=== PATIENT | female | born 1955 | race Caucasian/White ===

== ENCOUNTER 2022-05-11 10:07 | Emergency (ER) | payer OTHER ==
--- OUTSIDE RECORDS SUMMARY | 2022-05-11 10:12 | XMS REPORT | Continuity of Care Document ---
:1955 Author Organization [facility] t Address [address] [place] [address] Care Team Providers Name Role Phone Asked, No Pcp Primary Care Physician Unavailable Lexi Cotter Attending Clinician Unavailable Cr Pelayo MD Attending Clinician Doctor Unassigned, [address] Attending Clinician Unavailable FERNANDO RAGSDALE Attending Clinician Unavailable Nurse, Adc Pob Immunization Attending Clinician Unavailable Fernando Ragsdale DO Attending Clinician Alexandro Padilla MD Attending Clinician ALEXANDRO PADILLA Attending Clinician Unavailable Ha Stallings MD Attending Clinician Tod Alexander Attending Clinician KAIT STODDARD Attending Clinician Unavailable TOD HAAS Attending Clinician Unavailable HA STALLINGS Attending Clinician Unavailable Vikki Park MD Attending Clinician Pob, Adc Lab Main Attending Clinician Unavailable Katelin Lui Attending Clinician Silviano Arriola Attending Clinician Lexi Cotter Admitting Clinician Unavailable Physician, No Primary or Family Admitting Clinician Unavaila ble Payers Payer Name Policy Type Policy Number Effective Date Expiration Date S ource Problems Condition Condition Condition Status Onset Resolution Last Treating Co mments Source Name Details Category Date Date Treatment Clinician Date F03.90- F03.90- Diagnosis Active 2018-072019-09-10 Memoria UNSPECIFIE UNSPECIFIE 07-29 15:19:00 l D DEMENTIA D DEMENTIA 00:00: He rmann WITHOUT WITHOUT 00 BEH BEH Active 05/29/2019 [facility] Dementia Problem Resolve 2019-12-17 Memoria (disorder) (disorder) d 21:19:29 l Resolved [place] Problem 12/17/2019 [facility] 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 21:19:29 l (disorder) (disorder) He rmann Active Problem 12/17/2019 [facility] 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 21:19:29 l (disorder) (disorder) He rmann Active Problem 12/17/2019 [facility] 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 Cb n (disorder) (disorder) Active Problem 12/17/2019 [facility] Memory Memory Problem Active 2019-12-17 Alessandro debbi impairment impairment 21:19:29 l (finding) (finding) Herm howard Active Problem 12/17/2019 [facility] Raynaud's Raynaud's Problem Active 2019-12-17 Memoria disease disease 21:19:29 l (disorder) (disorder) He rmann Active Problem 12/17/2019 [facility] Tremor Tremor Problem Active 2019-12-17 Alessandro debbi (finding) (finding) 21:19:29 l Active [place] Problem 12/17/2019 [facility] No known No known Disease Unive rs active active ity of problems problems [facility] Allergies, Adverse Reactions, Alerts Allergy Allergy Status Severity Reaction(s) Onset Inactive Treating Comm ents Source Name Type Date Date Clinician Sulfamet Propensi Active Hives Method i hoxazole ty to 10-31 st - adverse [facility]: [facility] reaction [facility] l s to drug Septra Propensi Active Rash Univers I.V. ty to 02-18 ity of adverse 00:00: [place] reaction 00 Medical s Branch SEPTRA DRUG Active Rash Univers I.V. 02-18 ity of 00:00: [place] [id number] Medical Branch NO KNOWN Drug Active Univers ALLERGIE Class ity of S [place] [facility] Social History Social Habit Start Date Stop Date Quantity Comments Source Exposure to Not sure [facility] SARS-CoV-2 (event) Medica l Branch Tobacco use and 2020-09-13 2020-09-13 Never used [facility] [place] exposure 00:00:00 00:00:00 Medical Branch Social History 2018-03-29 2018-03-29 [facility] 17:03:20 17:03:20 Sex [birth year] [facility] 00:00:00 00:00:00 Smoking Status Start Date Stop Date Source Tobacco smoking consumption Meth [facility] unknown Never smoker [facility] Medications Ordered Filled Start Stop Current Ordering Indication Dosage Frequency Signature Comments Components Source Medication Medication Date Date Medication? Clinician (SIG) Name Name traMADoL 50 Yes 4647 50mg Take 1 Univ ers mg tablet 3-10 tablet by ity o f 00:00: mouth [place] 00 every 4 Medical (four) Branch hours as needed for Pain (scale 7-10). Indication s: acute pain traMADoL 50 2020-0 Yes 4647 50mg Take 1 Univ ers mg tablet 3-10 tablet by ity o f 00:00: mouth [place] 00 every 4 Medical (four) Branch hours as needed for Pain (scale 7-10). Indication s: acute pain traMADoL 50 2020-0 Yes 4647 50mg Take 1 Univ ers mg tablet 3-10 tablet by ity o f 00:00: mouth [place] 00 every 4 Medical (four) Branch hours as needed for Pain (scale 7-10). Indication s: acute pain traMADoL 50 2020-0 Yes 4647 50mg Take 1 Univ ers mg tablet 3-10 tablet by ity o f 00:00: mouth [place] 00 every 4 Medical (four) Branch hours as needed for Pain (scale 7-10). Indication s: acute pain traMADoL 50 2020-0 Yes 4647 50mg Take 1 Univ ers mg tablet 3-10 tablet by ity o f 00:00: mouth [place] 00 every 4 Medical (four) Branch hours as needed for Pain (scale 7-10). Indication s: acute pain traMADoL 50 2020-0 Yes 4647 50mg Take 1 Univ ers mg tablet 3-10 tablet by ity o f 00:00: mouth [place] 00 every 4 Medical (four) Branch hours as needed for Pain (scale 7-10). Indication s: acute pain traMADoL 50 2020-0 Yes 4647 50mg Take 1 Univ ers mg tablet 3-10 tablet by ity o f 00:00: mouth [place] 00 every 4 Medical (four) Branch hours as needed for Pain (scale 7-10). Indication s: acute pain traMADoL 50 2020-0 Yes 4647 50mg Take 1 Univ ers mg tablet 3-10 tablet by ity o f 00:00: mouth [place] 00 every 4 Medical (four) Branch hours as needed for Pain (scale 7-10). Indication s: acute pain traMADoL 50 2020-0 Yes 4647 50mg Take 1 Univ ers mg tablet 3-10 tablet by ity o f 00:00: mouth [place] 00 every 4 Medical (four) Branch hours as needed for Pain (scale 7-10). Indication s: acute pain traMADoL 50 2020-0 Yes 4647 50mg Take 1 Univ ers mg tablet 3-10 tablet by ity o f 00:00: mouth [place] 00 every 4 Medical (four) Branch hours as needed for Pain (scale 7-10). Indication s: acute pain traMADoL 50 2020-0 Yes 4647 50mg Take 1 Univ ers mg tablet 3-10 tablet by ity o f 00:00: mouth [place] 00 every 4 Medical (four) Branch hours as needed for Pain (scale 7-10). Indication s: acute pain traMADoL 50 2020-0 Yes 4647 50mg Take 1 Univ ers mg tablet 3-10 tablet by ity o f 00:00: mouth [place] 00 every 4 Medical (four) Branch hours as needed for Pain (scale 7-10). Indication s: acute pain traMADoL 50 2020-0 Yes 4647 50mg Take 1 Univ ers mg tablet 3-10 tablet by ity o f 00:00: mouth [place] 00 every 4 Medical (four) Branch hours as needed for Pain (scale 7-10). Indication s: acute pain traMADoL 50 2020-0 Yes 4647 50mg Take 1 Univ ers mg tablet 3-10 tablet by ity o f 00:00: mouth [place] 00 every 4 Medical (four) Branch hours as needed for Pain (scale 7-10). Indication s: acute pain HYDROcodone 2021-0 Yes 4647 1{tbl} Take 1 Un matheus -acetaminop 2-20 tablet by ity of hen 5-325 00:00: mouth [place] mg tablet 00 every 4 Medical (four) Branch hours as needed for Pain (scale 4-6). Indication s: acute pain HYDROcodone 0 Yes 4647 1{tbl} Take 1 Un matheus -acetaminop 2-20 tablet by ity of hen 5-325 00:00: mouth [place] mg tablet 00 every 4 Medical (four) Branch hours as needed for Pain (scale 4-6). Indication s: acute pain HYDROcodone Yes 4647 1{tbl} Take 1 Un matheus -acetaminop 2-20 tablet by ity of hen 5-325 00:00: mouth [place] mg tablet 00 every 4 Medical (four) Branch hours as needed for Pain (scale 4-6). Indication s: acute pain HYDROcodone Yes 4647 1{tbl} Take 1 Un matheus -acetaminop 2-20 tablet by ity of hen 5-325 00:00: mouth [place] mg tablet 00 every 4 Medical (four) Branch hours as needed for Pain (scale 4-6). Indication s: acute pain HYDROcodone Yes 4647 1{tbl} Take 1 Un matheus -acetaminop 2-20 tablet by ity of hen 5-325 00:00: mouth [place] mg tablet 00 every 4 Medical (four) Branch hours as needed for Pain (scale 4-6). Indication s: acute pain HYDROcodone Yes 4647 1{tbl} Take 1 Un matheus -acetaminop 2-20 tablet by ity of hen 5-325 00:00: mouth [place] mg tablet 00 every 4 Medical (four) Branch hours as needed for Pain (scale 4-6). Indication s: acute pain HYDROcodone Yes 4647 1{tbl} Take 1 Un matheus -acetaminop 2-20 tablet by ity of hen 5-325 00:00: mouth [place] mg tablet 00 every 4 Medical (four) Branch hours as needed for Pain (scale 4-6). Indication s: acute pain HYDROcodone Yes 4647 1{tbl} Take 1 Un matheus -acetaminop 2-20 tablet by ity of hen 5-325 00:00: mouth [place] mg tablet 00 every 4 Medical (four) Branch hours as needed for Pain (scale 4-6). Indication s: acute pain HYDROcodone 2020-0 Yes 4647 1{tbl} Take 1 Un matheus -acetaminop 2-20 tablet by ity of hen 5-325 00:00: mouth [place] mg tablet 00 every 4 Medical (four) Branch hours as needed for Pain (scale 4-6). Indication s: acute pain HYDROcodone 2020-0 Yes 4647 1{tbl} Take 1 Un matheus -acetaminop 2-20 tablet by ity of hen 5-325 00:00: mouth [place] mg tablet 00 every 4 Medical (four) Branch hours as needed for Pain (scale 4-6). Indication s: acute pain HYDROcodone 2020-0 Yes 4647 1{tbl} Take 1 Un matheus -acetaminop 2-20 tablet by ity of hen 5-325 00:00: mouth [place] mg tablet 00 every 4 Medical (four) Branch hours as needed for Pain (scale 4-6). Indication s: acute pain HYDROcodone 2020-0 Yes 4647 1{tbl} Take 1 Un matheus -acetaminop 2-20 tablet by ity of hen 5-325 00:00: mouth [place] mg tablet 00 every 4 Medical (four) Branch hours as needed for Pain (scale 4-6). Indication s: acute pain HYDROcodone 2020-0 Yes 4647 1{tbl} Take 1 Un matheus -acetaminop 2-20 tablet by ity of hen 5-325 00:00: mouth [place] mg tablet 00 every 4 Medical (four) Branch hours as needed for Pain (scale 4-6). Indication s: acute pain HYDROcodone 2020-0 Yes 4647 1{tbl} Take 1 Un matheus -acetaminop 2-20 tablet by ity of hen 5-325 00:00: mouth [place] mg tablet 00 every 4 Medical (four) Branch hours as needed for Pain (scale 4-6). Indication s: acute pain HYDROcodone 2020-0 Yes 4647 1{tbl} Take 1 Un matheus -acetaminop 2-20 tablet by ity of hen 5-325 00:00: mouth [place] mg tablet 00 every 4 Medical (four) Branch hours as needed for Pain (scale 4-6). Indication s: acute pain HYDROcodone Yes 4647 1{tbl} Take 1 Un matheus -acetaminop 2-20 tablet by ity of hen 5-325 00:00: mouth [place] mg tablet 00 every 4 Medical (four) Branch hours as needed for Pain (scale 4-6). Indication s: acute pain HYDROcodone Yes 4647 1{tbl} Take 1 Un matheus -acetaminop 2-20 tablet by ity of hen 5-325 00:00: mouth [place] mg tablet 00 every 4 Medical (four) Branch hours as needed for Pain (scale 4-6). Indication s: acute pain HYDROcodone 2020- No 4647 1{tbl} Take 1 U nivers -acetaminop 2-19 02-27 tablet by it y of hen 5-325 00:00: 05:59 mouth [place] mg tablet 00 :00 every 4 Medical (four) Branch hours as needed for Pain (scale 4-6) for up to 7 days. Indication s: acute pain HYDROcodone No 4647 1{tbl} Take 1 U nivers -acetaminop 2-19 02-27 tablet by it y of hen 5-325 00:00: 05:59 mouth [place] mg tablet 00 :00 every 4 Medical (four) Branch hours as needed for Pain (scale 4-6) for up to 7 days. Indication s: acute pain HYDROcodone No 4647 1{tbl} Take 1 U nivers -acetaminop 2-19 02-27 tablet by it y of hen 5-325 00:00: 05:59 mouth [place] mg tablet 00 :00 every 4 Medical (four) Branch hours as needed for Pain (scale 4-6) for up to 7 days. Indication s: acute pain HYDROcodone 2020- No 4647 1{tbl} Take 1 U nivers -acetaminop 2-19 02-27 tablet by it y of hen 5-325 00:00: 05:59 mouth [place] mg tablet 00 :00 every 4 Medical (four) Branch hours as needed for Pain (scale 4-6) for up to 7 days. Indication s: acute pain HYDROcodone No 4647 1{tbl} Take 1 U nivers -acetaminop 2-19 02-27 tablet by it y of hen 5-325 00:00: 05:59 mouth [place] mg tablet 00 :00 every 4 Medical (four) Branch hours as needed for Pain (scale 4-6) for up to 7 days. Indication s: acute pain HYDROcodone No 4647 1{tbl} Take 1 U nivers -acetaminop 2-19 02-27 tablet by it y of hen 5-325 00:00: 05:59 mouth [place] mg tablet 00 :00 every 4 Medical (four) Branch hours as needed for Pain (scale 4-6) for up to 7 days. Indication s: acute pain HYDROcodone No 4647 1{tbl} Take 1 U nivers -acetaminop 2-19 02-27 tablet by it y of hen 5-325 00:00: 05:59 mouth [place] mg tablet 00 :00 every 4 Medical (four) Branch hours as needed for Pain (scale 4-6) for up to 7 days. Indication s: acute pain HYDROcodone No 4647 1{tbl} Take 1 U nivers -acetaminop 2-19 02-27 tablet by it y of hen 5-325 00:00: 05:59 mouth [place] mg tablet 00 :00 every 4 Medical (four) Branch hours as needed for Pain (scale 4-6) for up to 7 days. Indication s: acute pain HYDROcodone No 4647 1{tbl} Take 1 U nivers -acetaminop 2-19 02-20 tablet by it y of hen 5-325 00:00: 00:00 mouth [place] mg tablet 00 :00 every 4 Medical (four) Branch hours as needed for Pain (scale 4-6) for up to 7 days. Indication s: acute pain HYDROcodone No 4647 1{tbl} Take 1 U nivers -acetaminop 2-19 02-20 tablet by it y of hen 5-325 00:00: 00:00 mouth [place] mg tablet 00 :00 every 4 Medical (four) Branch hours as needed for Pain (scale 4-6) for up to 7 days. Indication s: acute pain HYDROcodone No 4647 1{tbl} Take 1 U nivers -acetaminop 09-1320 tablet by it y of hen 5-325 00:00: 00:00 mouth [place] mg tablet 00 :00 every 4 Medical (four) Branch hours as needed for Pain (scale 4-6) for up to 7 days. Indication s: acute pain ketorolac 2020- No 60mg 60 mg, Unive rs (TORADOL) 09-10 Intramuscu ity of injection 22:30: 22:33 lar, ONCE, [place] 60 mg 00 :00 1 dose, Medical [facility] 09/10/20 at 1630, DOROTEO
Fa culty member approving Restricted medication : EMERGENCY ROOM, HYDROcodone 2020- No 1{tbl} 1 tablet, Univers -acetaminop 09-10 Oral, ity of hen (NORCO 22:30: 22:33 ONCE, 1 Sanjay as 5) 5-325 mg 00 :00 dose, [facility] Med ical tablet 1 09/10/20 at [facility] h tablet 1630, DOROTEO ibuprofen No 800mg 800 mg, Uni vers (IBU) 09-10 Oral, ity of tablet 800 19:45: 18:40 ONCE, 1 Sanjay as mg 00 :00 dose, [facility] 09/10/20 at Branch 1345, DOROTEO acetaminoph 2020- No 4647 1{tbl} Take 1 U nivers en-codeine 09-10 tablet by ity of 300-30 mg 00:00: 05:59 mouth [place] tablet 00 :00 every 6 Medical (six) Branch hours as needed for Pain (scale 7-10) for up to 7 days. Indication s: acute pain acetaminoph 2020- No 4647 1{tbl} Take 1 U nivers en-codeine 2-10 09-24 tablet by ity of 300-30 mg 00:00: 05:59 mouth [place] tablet 00 :00 every 6 Medical (six) Branch hours as needed for Pain (scale 7-10) for up to 7 days. Indication s: acute pain acetaminoph 2020- No 4647 1{tbl} Take 1 U nivers en-codeine 2-16 02-24 tablet by ity of 300-30 mg 00:00: 05:59 mouth [place] tablet 00 :00 every 6 Medical (six) Branch hours as needed for Pain (scale 7-10) for up to 7 days. Indication s: acute pain acetaminoph 2020- No 4647 1{tbl} Take 1 U nivers en-codeine 2-16 02-24 tablet by ity of 300-30 mg 00:00: 05:59 mouth [place] tablet 00 :00 every 6 Medical (six) Branch hours as needed for Pain (scale 7-10) for up to 7 days. Indication s: acute pain acetaminoph 2020- No 4647 1{tbl} Take 1 U nivers en-codeine 2-16 02-24 tablet by ity of 300-30 mg 00:00: 05:59 mouth [place] tablet 00 :00 every 6 Medical (six) Branch hours as needed for Pain (scale 7-10) for up to 7 days. Indication s: acute pain acetaminoph 2020- No 4647 1{tbl} Take 1 U nivers en-codeine 2-16 02-24 tablet by ity of 300-30 mg 00:00: 05:59 mouth [place] tablet 00 :00 every 6 Medical (six) Branch hours as needed for Pain (scale 7-10) for up to 7 days. Indication s: acute pain acetaminoph 2020- No 4647 1{tbl} Take 1 U nivers en-codeine 2-16 02-24 tablet by ity of 300-30 mg 00:00: 05:59 mouth [place] tablet 00 :00 every 6 Medical (six) Branch hours as needed for Pain (scale 7-10) for up to 7 days. Indication s: acute pain onabotulinu Yes See Memori a mtoxinA 100 2-12 Instructio l UNT/ML 20:36: ns, Bring Cb n Injectable 00 to Solution physician' [Botox] s office for injection, X 1 day, # 1 ea, 3 Refill(s), Pharmacy: [facility] onabotulinu Yes See Memori a mtoxinA 100 2-12 Instructio l UNT/ML 20:36: ns, Bring Cb n Injectable 00 to Solution physician' [Botox] s office for injection, X 1 day, # 1 ea, 3 Refill(s), Pharmacy: [facility] onabotulinu No See Memori a mtoxinA 100 2-12 Instructio l UNT/ML 17:46: ns, Bring Cb n Injectable 00 to Solution physician' [Botox] s office for injection, X 1 day, # 1 ea, 3 Refill(s), other onabotulinu No See Memori a mtoxinA 100 2-12 Instructio l UNT/ML 17:46: ns, Bring Cb n Injectable 00 to Solution physician' [Botox] s office for injection, X 1 day, # 1 ea, 3 Refill(s), other primidone 2018-07 Yes 50 mg = 1 Mem oria 50 mg oral 2-16 tab, PO, l tablet 19:53: BID, # 180 Andree nn 40 tab, 0 Refill(s), Pharmacy: [facility] #[id number] primidone 2018-07 Yes 50 mg = 1 Mem oria 50 mg oral 2-16 tab, PO, l tablet 19:53: BID, # 180 Andree nn 40 tab, 0 Refill(s), Pharmacy: [facility] #[id number] primidone 2018-07 Yes 50 mg = 1 Mem oria 50 mg oral 2-11 tab, PO, l tablet 17:21: BID, # 60 Cb n 00 tab, 3 Refill(s), Pharmacy: [facility] #[id number] primidone 2018-07 Yes 50 mg = 1 Mem oria 50 mg oral 2-11 tab, PO, l tablet 17:21: BID, # 60 Cb n 00 tab, 3 Refill(s), Pharmacy: [facility] #[id number] topiramate 2017-07 No 25 mg = 1 Me moria 25 MG Oral 2-28 tab, PO, l Tablet 21:35: Bedtime, # Andree nn [Topamax] 31 90 tab, 3 Refill(s), Pharmacy: [facility] topiramate 2017-07 No 25 mg = 1 Me moria 25 MG Oral 2-28 tab, PO, l Tablet 21:35: Bedtime, # Andree nn [Topamax] 31 90 tab, 3 Refill(s), Pharmacy: [facility] Vitamin B12 2017-07 Yes 1,000 Memor ia 1000 mcg 2-12 microgram l oral tablet 21:34: = 1 tab, He rmann 00 PO, Daily, # 30 tab, 3 Refill(s), [id number] Vitamin B12 2017-07 Yes 1,000 Memor ia 1000 mcg 2-12 microgram l oral tablet 21:34: = 1 tab, He rmann 00 PO, Daily, # 30 tab, 3 Refill(s), Pharmacy: [facility] #[id number] topiramate 2017-07 No 25 mg = 1 Me moria 25 MG Oral 1-08 tab, PO, l Tablet 17:20: Bedtime, X Andree nn [Topamax] 00 90 day, # 90 tab, 3 Refill(s), Pharmacy: [facility] #[id number] topiramate 2017-07 No 25 mg = 1 Me moria 25 MG Oral 1-08 tab, PO, l Tablet 17:20: Bedtime, X Andree nn [Topamax] 00 90 day, # 90 tab, 3 Refill(s), [id number] Immunizations Ordered Filled Immunization Date Status Comments [facility] e Immunization Name Name SARS-COV-2 COVID-19 2021-04-24 Completed Unive rsity of MODERNA VACCINE 00:00:00 [facility] SARS-COV-2 COVID-19 2021-04-24 Completed Unive rsity of MODERNA VACCINE 00:00:00 [facility] SARS-COV-2 COVID-19 2020-10-30 Completed Unive rsity of MODERNA VACCINE 00:00:00 [facility] SARS-COV-2 COVID-19 2020-10-30 Completed Unive rsity of MODERNA VACCINE 00:00:00 [facility] SARS-COV-2 COVID-19 2020-10-30 Completed Unive rsity of MODERNA VACCINE 00:00:00 [facility] SARS-COV-2 COVID-19 2020-10-30 Completed Unive rsity of MODERNA VACCINE 00:00:00 [facility] SARS-COV-2 COVID-19 2020-10-30 Completed Unive rsity of MODERNA VACCINE 00:00:00 [place] Med ical Branch SARS-COV-2 COVID-19 2020-10-30 Completed Unive rsity of MODERNA VACCINE 00:00:00 [place] Med ical Branch SARS-COV-2 COVID-19 2020-10-30 Completed Unive rsity of MODERNA VACCINE 00:00:00 [place] Med ical Branch SARS-COV-2 COVID-19 2020-10-30 Completed Unive rsity of MODERNA VACCINE 00:00:00 [place] Med ical Branch SARS-COV-2 COVID-19 2020-10-30 Completed Unive rsity of MODERNA VACCINE 00:00:00 [place] Med ical Branch SARS-COV-2 COVID-19 2020-10-02 Completed Unive rsity of MODERNA VACCINE 00:00:00 [place] Med ical Branch SARS-COV-2 COVID-19 2020-10-02 Completed Unive rsity of MODERNA VACCINE 00:00:00 [place] Med [facility] Branch SARS-COV-2 COVID-19 2020-10-02 Completed Unive rsity of MODERNA VACCINE 00:00:00 [place] [facility] ical Branch SARS-COV-2 COVID-19 2020-10-02 Completed Unive rsity of MODERNA VACCINE 00:00:00 [place] Med ical Branch SARS-COV-2 COVID-19 2020-10-02 Completed Unive rsity of MODERNA VACCINE 00:00:00 [place] Med ical Branch SARS-COV-2 COVID-19 2020-10-02 Completed Unive rsity of MODERNA VACCINE 00:00:00 [place] Med ical Branch SARS-COV-2 COVID-19 2020-10-02 Completed Unive rsity of MODERNA VACCINE 00:00:00 [place] Med ical Branch SARS-COV-2 COVID-19 2020-10-02 Completed Unive rsity of MODERNA VACCINE 00:00:00 [place] Med ical Branch SARS-COV-2 COVID-19 2020-10-02 Completed Unive rsity of MODERNA VACCINE 00:00:00 [place] Med ical Branch SARS-COV-2 COVID-19 2020-10-02 Completed Unive rsity of MODERNA VACCINE 00:00:00 [place] Med ical Branch SARS-COV-2 COVID-19 2020-10-02 Completed Unive rsity of MODERNA VACCINE 00:00:00 [facility] SARS-COV-2 COVID-19 2020-10-02 Completed Unive rsity of MODERNA VACCINE 00:00:00 [facility] SARS-COV-2 COVID-19 2020-10-02 Completed Unive rsity of MODERNA VACCINE 00:00:00 [facility] Vital Signs Vital Name Observation Time Observation Value Comments Source Systolic blood 2021-02-18 13:35:00 124 mm[Hg] Univer sity of pressure [facility] Diastolic blood 2021-02-18 13:35:00 80 mm[Hg] Unive rsity of pressure [facility] Heart rate 2021-02-18 13:35:00 60 /min Universi ty of [facility] Body height 2021-02-18 13:35:00 160 cm Universi ty of [facility] Body weight 2021-02-18 13:35:00 53.524 kg Universi ty [facility] BMI 2021-02-18 13:35:00 20.90 kg/m2 Universi ty [facility] Systolic blood 2020-10-30 18:11:00 123 mm[Hg] Univer sity of pressure [facility] Branch Diastolic blood 2020-10-30 18:11:00 82 mm[Hg] Unive rsity of [facility] Heart rate 2020-10-30 18:11:00 80 /min Universi ty of [facility] Body weight 2020-10-30 18:11:00 52.164 kg Universi ty of [facility] BMI 2020-10-30 18:11:00 20.37 kg/m2 Universi ty [facility] Systolic blood 2020-10-02 19:16:00 124 mm[Hg] Univer sity of pressure [facility] Branch Diastolic blood 2020-10-02 19:16:00 78 mm[Hg] Unive rsity of pressure [facility] Body height 2020-10-02 19:16:00 160 cm Universi ty of [facility] Body weight 2020-10-02 19:16:00 52.164 kg Universi ty of [facility] Branch BMI 2020-10-02 19:16:00 20.37 kg/m2 Universi ty [facility] Systolic blood 2020-09-13 16:05:00 123 mm[Hg] Univer sity of pressure [facility] Diastolic blood 2020-09-13 16:05:00 71 mm[Hg] Unive rsity of pressure [facility] Heart rate 2020-09-13 16:05:00 67 /min Universi ty of [facility] Body height 2020-09-13 16:05:00 160 cm Universi ty of [facility] Body weight 2020-09-13 16:05:00 52.164 kg Universi ty of [facility] BMI 2020-09-13 16:05:00 20.37 kg/m2 Universi ty [facility] Systolic blood 2020-09-10 23:15:00 114 mm[Hg] Univer sity of pressure [facility] Diastolic blood 2020-09-10 23:15:00 68 mm[Hg] Unive rsity of [facility] Heart rate 2020-09-10 23:15:00 72 /min Universi ty [facility] Respiratory rate 2020-09-10 23:15:00 18 /min Univ [facility] Oxygen saturation in 2020-09-10 23:15:00 98 /min [facility] Arterial blood by [facility] Pulse oximetry Branch Body temperature 2020-09-10 18:32:00 36.78 Jaylin Univ ersity of [facility] Body weight 2020-09-10 18:32:00 68.04 kg Universi ty [facility] Systolic (mm Hg) 2019-10-10 18:50:00 Alessandro pacheco [place] Diastolic (mm Hg) 2019-10-10 18:50:00 Mem orial [place] Heart Rate 2019-10-10 18:50:00 [facility] [place] Respitory Rate 2019-10-10 18:50:00 Latriceori al [place] Height 2019-10-10 18:50:00 160.02 cm [facility] [place] Weight 2019-10-10 18:50:00 [facility] BMI Calculated 2019-10-10 18:50:00 Latriceori al [place] Height 2019-09-06 16:45:00 160.02 cm [facility] Weight 2019-09-06 16:45:00 [facility] BMI Calculated 2019-09-06 16:45:00 [facility] Systolic (mm Hg) 2019-09-06 16:45:00 Alessandro [facility] Diastolic (mm Hg) 2019-09-06 16:45:00 Mem orial [facility] Heart Rate 2019-09-06 16:45:00 [facility] Respitory Rate 2019-09-06 16:45:00 [facility] Systolic (mm Hg) 2019-07-05 16:33:00 Alessandro [facility] Diastolic (mm Hg) 2019-07-05 16:33:00 [facility] Heart Rate 2019-07-05 16:33:00 [facility] Respitory Rate 2019-07-05 16:33:00 [facility] Height 2019-07-05 16:33:00 162.56 cm [facility] Weight 2019-07-05 16:33:00 [facility] BMI Calculated 2019-07-05 16:33:00 [facility] Systolic (mm Hg) 2019-05-02 16:00:00 Alessandro rial Arnol Diastolic (mm Hg) 2019-05-02 16:00:00 [facility] Heart Rate 2019-05-02 16:00:00 [facility] Respitory Rate 2019-05-02 16:00:00 [facility] Height 2019-05-02 16:00:00 160.02 cm [facility] Weight 2019-05-02 16:00:00 [facility] BMI Calculated 2019-05-02 16:00:00 [facility] BMI Calculated 2019-01-20 18:06:00 [facility] Weight 2019-01-20 18:06:00 [facility] Respitory Rate 2019-01-20 18:06:00 [facility] Heart Rate 2019-01-20 18:06:00 [facility] Height 2019-01-20 18:06:00 160.02 cm [facility] Systolic (mm Hg) 2019-01-20 18:06:00 Alessandro rial [facility] Diastolic (mm Hg) 2019-01-20 18:06:00 [facility] Heart Rate 2018-07-06 20:45:00 [facility] Systolic (mm Hg) 2018-07-06 20:45:00 Alessandro rial Arnol Diastolic (mm Hg) 2018-07-06 20:45:00 [facility] Weight 2018-07-06 20:45:00 Joycelyn Ambrose Height 2018-07-06 20:45:00 129.54 cm Joycelyn Ambrose BMI Calculated 2018-07-06 20:45:00 Darinel Jensen Procedures Procedure Date / Time Performing Clinician Source Performed NM BRAIN SPECT W I 123 2021-10-31 20:04:00 Cr Pelayo [facility] DATSCAN REFERRAL- REQUEST/RESPONSE 2021-05-16 05:01:00 Doctor Unassigned , [facility] [address] [facility] SARS-COV-2 COVID-19 2021-04-24 14:51:10 Doctor Izzy, [facility] VACCINE,0.5ML,IM (MODERNA) [address] [facility] REFERRAL- REQUEST/RESPONSE 2021-01-09 05:01:00 Doctor Izzy , [facility] [address] [facility] REFERRAL- REQUEST/RESPONSE 2020-11-07 05:01:00 Doctor Izzy , [facility] [address] [facility] XR WRIST 3+ VW LEFT 2020-10-30 17:42:[address] [facility] XR WRIST <3 VW LEFT 2020-10-02 19:22:32 Tod Haas [facility] NON [facility] FACILITY 2020-09-18 06:01:00 Doctor Izzy, [facility] DOCUMENTATION [address] [facility] [place] XR CHEST 1 VW 2020-09-13 18:00:48 Ha Stallings [facility] ED ORTHOPEDIC INJURY 2020-09-11 00:00:00 Katelin Greenfield [facility] TREATMENT - FRACTURE Medical Bra [facility] XR WRIST 3+ VW LEFT 2020-09-10 19:21:52 Femi Pimentel [facility] XR FOREARM 2 VW LEFT 2020-09-10 19:21:31 Femi Pimentel [facility] NOTICE OF PRIVACY 2020-09-10 18:19:58 Doctor Izzy, [facility] PRACTICES [address] [facility] [place] 2019-10-10 22:28:00 Joycelyn Ambrose muscle(s); neck muscle(s), excluding muscles of the larynx, unilateral (eg, for cervical dystonia, spasmodic torticollis) [facility] Plan of Care Planned Activity Planned Date Details Comments Source Future Scheduled 2022-04-14 HEPATITIS B VACCINES [facility] Test 03:37:59 (1 of 3 - 3-dose series) [code = HEPATITIS B VACCINES (1 of 3 - 3-dose series)] Future Scheduled 2022-04-14 Hepatitis C screening [facility] Test 03:37:59 (procedure) [code = 781690581] Future Scheduled 2022-04-14 Screening for [facility] Test 03:37:59 malignant neoplasm of cervix (procedure) [code = 178055179] Future Scheduled 2022-04-14 BREAST CANCER [facility] Test 03:37:59 SCREENING [code = BREAST CANCER SCREENING] Future Scheduled 2022-04-14 COLONOSCOPY SCREENING [facility] Test 03:37:59 [code = COLONOSCOPY SCREENING] Future Scheduled 2022-04-14 COVID-19 VACCINE (5 - [facility] Test 03:37:59 Booster for Moderna series) [code = COVID-19 VACCINE (5 - Booster for Moderna series)] Future Scheduled 2022-04-14 INFLUENZA VACCINE [facility] Test 03:37:59 [code = INFLUENZA VACCINE] Future Scheduled 2022-04-14 HEPATITIS B VACCINES [facility] Test 03:37:59 (1 of 3 - 3-dose series) [code = HEPATITIS B VACCINES (1 of 3 - 3-dose series)] Future Scheduled 2022-04-14 Hepatitis C screening [facility] Test 03:37:59 (procedure) [code = 606212327] Future Scheduled 2022-04-14 Screening for [facility] Test 03:37:59 malignant neoplasm of cervix (procedure) [code = 127323119] Future Scheduled 2022-04-14 BREAST CANCER [facility] Test 03:37:59 SCREENING [code = BREAST CANCER SCREENING] Future Scheduled 2022-04-14 COLONOSCOPY SCREENING [facility] Test 03:37:59 [code = COLONOSCOPY SCREENING] Future Scheduled 2022-04-14 COVID-19 VACCINE (5 - Me [facility] Test 03:37:59 Booster for Moderna series) [code = COVID-19 VACCINE (5 - Booster for Moderna series)] Future Scheduled 2022-04-14 INFLUENZA VACCINE [facility] Test 03:37:59 [code = INFLUENZA VACCINE] Encounters Start End Encounter Admission Attending Care Care Encounter Source Date/Time Date/Time Type Type Clinicians Facility Department ID 2019-06-08 Outpatient MHSE MHSE [id number] MH 08:24:03 [facility] 2022-04-24 2022-04-24 Outpatient VISHAL Cotter, [facility] [id number] [facility] 08:00:00 08:00:00 Lexi Corado [facility] 2021-10-31 2021-10-31 [facility], 1.2.840.1 [id number] Methodi 08:44:17 23:59:00 Encounter Cr Marcus50.1.[address] 3.430.2.7 Hospit a .3.118626 .8 2021-10-31 2021-10-31 [facility], 1.2.840.1 [id number] Methodi 08:44:17 23:59:00 Encounter Cr Zavala 19765.1.[address] 3.430.2.7 Hospit a .3.911186 l .8 2021-10-31 2021-10-31 [facility], 1.2.840.1 [id number] Methodi 08:44:09 23:59:00 Encounter Cr Zavala 02508.1.[address] 3.430.2.7 Hospit a .3.672987 l .8 2021-10-31 2021-10-31 [facility], 1.2.840.1 [id number] Methodi 08:44:09 23:59:00 Encounter Cr Zavala 55680.1.[address] 3.430.2.7 Hospit a .3.870386 l .8 2021-10-31 2021-10-31 Travel 1.2.840.1 1.2.329.644 [id number] Methodi 00:00:00 00:00:[address] 3.430.2.7 0.2.7.3.698 Ho spita .3.514521 084.8 l .8 2021-10-31 2021-10-31 Travel 1.2.840.1 1.2.711.212 9178 [id number] Methodi 00:00:00 00:00:[address] 3.430.2.7 0.2.7.3.698 Ho spita .3.987919 084.8 l .8 2021-10-06 2021-10-06 Travel 1.2.840.1 1.2.774.218 0238 [id number] Methodi 00:00:00 00:00:[address] 3.430.2.7 0.2.7.3.698 Ho spita .3.068601 084.8 l .8 2021-10-06 2021-10-06 Travel 1.2.840.1 1.2.325.720 8053 [id number] Methodi 00:00:00 00:00:[address] 3.430.2.7 0.2.7.3.698 Ho spita .3.109752 084.8 l .8 2021-09-26 2021-09-26 [facility].840[facility] [id number] Methodi 00:00:00 00:00:00 Orders [place] F[address]91.1.[address] 3.430.2.7 Hospit a .3.929255 l .8 2021-09-26 2021-09-26 Transcribe [place], 1.2.840.1 [id number] Methodi 00:00:00 00:00:00 Orders [place] F[address]66.1.[address] 3.430.2.7 Hospit a .3.578497 l .8 2021-05-16 2021-05-16 Orders Doctor ROE 1.2.840.114 [id number] Univers 00:00:00 00:00:00 Only Unassigned, EFRA 350.1.13.[address] [facility] 4.2.7.2.686 Sanjay as [phone] [address] 2021-04-24 2021-04-24 Outpatient R JN [facility] [id number] Univers 10:10:00 10:10:00 FERNANDO bradley [facility] 2021-04-24 2021-04-24 Imm/Inj Nurse, Adc Pob Immunization [facility] 1.2.840.114 [id number] Univers 08:56:48 08:57:05 Visit JnFernando 350.1.13 .10 ity [place] Profess[place] [phone] Ga dical nal 421 [facility] 2021-04-18 2021-04-18 Outpatient VISHAL Cotter [facility] ANNABELLA [id number] [facility] 12:00:00 12:00:00 Lexi 33 [facility] 2021-04-18 2021-04-18 Inpatient VISHAL Cotter [facility] RADI [id number] [facility] 12:00:00 10:35:00 Lexi 79 [facility] 2021-02-18 2021-02-18 Office Yazan [facility] 1.2.840.114 [id number] Univers 08:21:52 08:51:52 Visit [facility] 350.1.13.10 it y of [place] 4.2.7.2.686 Sanjay as Professio [phone] Ga dical [facility] [address] [place] [address] 2021-02-18 2021-02-18 Outpatient Kelly PADILLA [facility] [id number] Univers 08:30:00 08:30:00 ALEXANDRO [facility] 2021-01-09 2021-01-09 Orders Doctor AU 1.2.840.114 [id number] Univers 00:00:00 00:00:00 Only Unassigned, EFRA 350.1.13.[address] [facility] 4.2.7.2.686 Sanjay as [phone] [address] 2020-11-07 2020-11-07 Orders Doctor AU 1.2.840.114 [id number] Univers 00:00:00 00:00:00 Only Unassigned, EFRA 350.1.13.[address] [facility] 4.2.7.2.686 Sanjay as [phone] [facility] 00[address] Branch 2020-10-30 2020-10-30 [facility] 1.2.840.114 [id number] Univers 12:21:36 23:59:00 Encounter Ha Garcia 350.1.13.10 it[place] [phone] [facility] [address] [place] 2020-10-30 2020-10-30 Office [facility] 1.2.840.114 [id number] Univers 12:54:07 13:09:07 Visit [facility] 350.1.13.10 it y of Surgical 4.2.7.2.686 Sanjay as Specialti [phone] Ga dical es 198 [facility] 2020-10-30 2020-10-30 [facility] [id number] Univers 13:00:00 13:00:00 KAIT [facility] 2020-10-29 2020-10-29 Telephone [facility] 1.2.840.114 [id number] Univers 00:00:00 00:00:00 aH Mcconnell 350.1.13.10 it y of Surgical 4.2.7.2.686 Sanjay as Specialti [phone] Ga dical es 198 [facility] 2020-10-02 2020-10-02 [facility] 1.2.840.114 [id number] Univers 13:22:31 23:59:00 Encounter Tod [facility] 350.1.13.10 ity of Surgical 4.2.7.2.686 Sanjay as Specialti [phone] Ga dical es 809 [facility] 2020-10-02 2020-10-02 [facility] [id number] Univers 13:22:31 23:59:00 TOD [facility] 2020-10-02 2020-10-02 Office Tod Haas [facility] 1.2.840.114 [id number] Univers 13:07:38 13:22:38 Visit Ha Stallings 350.1.13.10 ity of Surgical 4.2.7.2.686 Sanjay as Specialti [phone] Me dical es 198 [facility] 2020-10-02 2020-10-02 Outpatient Kelly ARLYN [facility] [id number] Univers 13:00:00 13:00:00 KAIT ity of [facility] 2020-09-18 2020-09-18 Hospital JOYCELYN [place] 1.2.840.114 [id number] Univers 13:11:00 23:59:00 Encounter Ha L ARNOL 350.1.13.10 [place] [phone] [facility] [address] [place] 2020-09-18 2020-09-18 Outpatient [facility] N[facility] [id number] Univers 00:00:00 00:00:00 HA ity of [facility] 2020-09-18 2020-09-18 Orders Doctor ROE 1.2.840.114 [id number] Univers 00:00:00 00:00:00 Only Unassigned, EFRA 350.1.13.[address] [facility] 4.2.7.2.686 Sanjay as [phone] [facility] [address] [place] 2020-09-14 2020-09-14 RefROE Castillo 1.2.840.114 [id number] Univers 00:00:00 00:00:00 Vikki PARDOY 350.1.13.10 ity of [facility] 4.2.7.2.686 Sanjay as [phone] [facility] [address] [place] 2020-09-14 2020-09-14 Telephone [facility] 1.2.840.114 [id number] Univers 00:00:00 00:00:00 Ha Mcconnell 350.1.13.10 it y of Surgical 4.2.7.2.686 Sanjay as Specialti [phone] Ga dical es 198 [facility] 2020-09-13 2020-09-13 Bow String Maker Miguel, Adc Lab Main [facility] 1.2.8 40.114 [id number] Univers 11:09:34 11:24:34 Visit Ha Stallings 350.1.13.10 ity [place] [phone] Ga dical nal 353 [facility] 2020-09-13 2020-09-13 Hospital [facility] 1.2.840.114 [id number] Univers 11:08:24 11:12:00 Encounter Ha Garcia 350.1.13.10 ity of [place] [phone] [facility] [address] [place] 2020-09-13 2020-09-13 Office [facility] 1.2.560.962 [id number] Univers 09:57:56 10:35:18 Visit Ha Hidalgo [facility] 350.1.13.10 it y of Surgical 4.2.7.2.686 Sanjay as Specialti [phone] Ga dical es 198 [facility] 2020-09-13 2020-09-13 Outpatient [facility] [id number] Univers 10:15:00 10:15:00 HA bradley [facility] 2020-09-10 2020-09-10 Emergency [facility] 1.2.840.114 [id number] Univers 12:52:00 19:07:00 Katelin Garcia 350.1.13.10 i ty of [place] [phone] [facility] [address] [place] 2020-09-10 2020-09-10 Emergency X [facility] ERT [id number] Univers 12:17:00 12:17:00 ity of [facility] 2019-12-15 2019-12-15 Ambulatory nullFlavo MNA [id number] Memoria 15:00:00 15:00:00 Pre-Reg r Neurology 11 l Cosmo [facility] 2019-12-15 2019-12-15 Ambulatory nullFlavo MNA [id number] Memoria 15:00:00 15:00:00 Pre-Reg r Neurology 11 l Cosmo [facility] 2019-12-15 2019-12-15 Outpatient WILBERTO Arriola [id number] 10:00:00 10:00:00 Silviano 11 [facility] 2019-11-21 2019-11-21 Outpatient MHIE MHIE [id number] Memoria 14:30:00 14:30:00 11 l [place] 2019-10-10 2019-10-11 Outpatient nullFlavo MNA [id number] Memoria 19:00:00 04:59:59 r Neurology 10 l Cosmo Arnol 2019-10-10 2019-10-11 Outpatient nullFlavo MNA [id number] Memoria 19:00:00 04:59:59 r Neurology 10 l Cosmo [facility] 2019-10-10 2019-10-10 [facility] [id number] 14:00:00 23:59:59 Silviano 10 Saroj 2019-10-10 2019-10-10 Outpatient MHIE MHIE [id number] Memoria 14:00:00 14:00:00 10 l [place]im[place] 2019-09-18 2019-09-20 Outside nullFlavo MNA [id number] Memoria 16:05:31 05:59:59 Medical r Neurology 08 l Records Cosmo [facility]imley 2019-09-18 2019-09-20 Outside nullFlavo MNA [id number] Memoria 16:05:31 05:59:59 Medical r Neurology 08 l Records Cosmo [facility]im[facility] 2019-09-18 2019-09-19 Outpatient MHMISCHER MHMISCHER [id number] 10:05:31 23:59:59 08 2019-09-06 2019-09-07 Outpatient nullFlavo MNA [id number] Memoria 16:45:00 05:59:59 r Neurology 09 l Cosmo [place]im[place] 2019-09-06 2019-09-07 Outpatient nullFlavo MNA [id number] Memoria 16:45:00 05:59:59 r Neurology 09 l Cosmo [place] 2019-09-06 2019-09-06 Outpatient CATHY ArriolaMISCHER MISCHER [id number] 10:45:00 23:59:59 Silviano 09 [facility] 2019-09-06 2019-09-06 Outpatient MHIE MHIE [id number] Memoria 10:45:00 10:45:00 09 l Arnol 2019-09-01 2019-09-01 Outpatient VISHAL Cotter, [facility] ANNABELLA [id number] [facility] 12:00:00 12:00:00 Lexi Kapadia [facility] 2019-07-05 2019-07-06 Outpatient nullFlavo MNA [id number] Memoria 16:45:00 05:59:59 r Neurology 08 tulio [place] Arnol 2019-07-05 2019-07-06 Outpatient nullFlavo MNA [id number] Memoria 16:45:00 05:59:59 r Neurology 08 [place] 2019-07-05 2019-07-05 Outpatient Zeinab MHMISCHER MHMISCHER [id number] 10:45:00 23:59:[address] [place] [address] 2019-07-05 2019-07-05 Outpatient MHIE MHIE [id number] Memoria 10:45:00 10:45:00 08 tulio Arnol 2019-05-02 2019-05-03 Outpatient nullFlavo MNA [id number] Memoria 16:30:00 04:59:59 r Neurology 07 tulio [place] Arn[place] 2019-05-02 2019-05-03 Outpatient nullFlavo MNA [id number] Memoria 16:30:00 04:59:59 r Neurology 07 tulio [place] Arn[place] 2019-05-02 2019-05-02 Outpatient Zeinab MHMISCHER MHMISCHER [id number] 11:30:00 23:59:59 Silviano Laura Saroj 2019-05-02 2019-05-02 Outpatient MHIE MHIE [id number] Memoria 11:30:00 11:30:00 07 tulio Arnol 2019-04-28 2019-04-28 Ambulatory nullFlavo MNA [id number] Memoria 18:00:00 18:00:00 Pre-Reg r Neurology 06 tulio [place] Arnol 2019-04-28 2019-04-28 Ambulatory nullFlavo MNA [id number] Memoria 18:00:00 18:00:00 Pre-Reg r Neurology 06 tulio [place] Arn[place] 2019-04-28 2019-04-28 Outpatient MHIE MHIE [id number] Memoria 13:00:00 13:00:00 06 tulio Ambrose 2019-04-28 2019-04-28 Outpatient Zeinab MHMISCHER MHMISCHER [id number] 13:00:00 13:00:00 Silviano Alexandra Kyle 2019-01-20 2019-01-21 Outpatient nullFlavo MNA [id number] Memoria 18:15:00 04:59:59 r Neurology 05 l Cosmo Ambrose 2019-01-20 2019-01-21 Outpatient nullFlavo MNA [id number] Memoria 18:15:00 04:59:59 r Neurology 05 l Cosmo Ambrose 2019-01-20 2019-01-20 [facility] [id number] 13:15:00 23:59:59 Silvianohany Kyle 2019-01-20 2019-01-20 Outpatient MHIE MHIE [id number] Memoria 13:15:00 13:15:00 05 tulio Ambrose 2018-12-26 2018-12-28 Outside nullFlavo MNA [id number] Memoria 14:25:27 04:59:59 Medical r Neurology 07 l Records Cosmo Ambrose 2018-12-26 2018-12-28 Outside nullFlavo MNA [id number] Memoria 14:25:27 04:59:59 Medical r Neurology 07 l Records Cosmo Ambrose 2018-12-26 2018-12-27 [facility] [id number] 09:25:27 23:59:59 2018-12-02 2018-12-02 Ambulatory nullFlavo MNA [id number] Memoria 21:00:00 21:00:00 Pre-Reg r Neurology 04 l Cosmo Gunnann 2018-12-02 2018-12-02 Ambulatory nullFlavo MNA [id number] Memoria 21:00:00 21:00:00 Pre-Reg r Neurology 04 l Cosmo Gunnann 2018-12-02 2018-12-02 Outpatient Zeinab [facility] [id number] 16:00:00 16:00:00 Silvianohany Kyle 2018-11-16 2018-11-16 Outpatient MHIE MHIE [id number] Memoria 15:45:00 15:45:00 04 tulio Arnol 2018-10-07 2018-10-07 Outpatient MHIE IE [id number] Memoria 14:30:00 14:30:00 03 tulio Ambrose 2018-10-07 2018-10-07 Outpatient MHIE MHIE [id number] Memoria 14:30:00 14:30:00 03 tulio Ambrose 2018-07-30 2018-08-01 Outside nullFlavo MNA [id number] Memoria 18:02:00 05:59:59 Medical r Neurology 04 l Nellie Ambrose 2018-07-30 2018-08-01 Outside nullFlavo MNA [id number] Memoria 18:02:00 05:59:59 Medical r Neurology 04 l Nellie Ambrose 2018-07-30 2018-07-31 Outpatient MHMISCHER MHMISCHER [id number] 12:02:00 23:59:59 04 2018-07-22 2018-07-24 Phone nullFlavo MNA [id number] Memoria 20:41:00 05:59:59 Message r Neurology 03 tulio Ambrose 2018-07-22 2018-07-24 Phone nullFlavo MNA [id number] Memoria 20:41:00 05:59:59 Message r Neurology 03 tulio Ambrose 2018-07-22 2018-07-23 Outpatient MHMISCHER MHMISCHER [id number] 14:41:00 23:59:59 03 2018-07-06 2018-07-07 Outpatient nullFlavo MNA [id number] Memoria 20:45:00 05:59:59 r Neurology 02 tulio Ambrose 2018-07-06 2018-07-07 Outpatient nullFlavo MNA [id number] Memoria 20:45:00 05:59:59 r Neurology 02 tulio Ambrose 2018-07-06 2018-07-06 Outpatient Zeinab MISCHER MISCHER [id number] 14:45:00 23:59:59 Silviano Ida Saroj 2018-07-06 2018-07-06 Outpatient MHIE MHIE [id number] Memoria 14:45:00 14:45:00 Ida Ambrose 2018-06-02 2018-06-04 Phone nullFlavo MNA [id number] Memoria 15:03:00 05:59:59 Message r Neurology 02 tulio Ambrose 2018-06-02 2018-06-04 Phone nullFlavo MNA [id number] Memoria 15:03:00 05:59:59 Message r Neurology 02 l Cosmo Ambrose 2018-06-02 2018-06-03 Outpatient MHMISCHER MHMISCHER [id number] 09:03:00 23:59:59 2018-04-23 2018-04-25 Outside nullFlavo MNA [id number] Memoria 20:03:00 04:59:59 Medical r Neurology 01 l Records Cosmo Ambrose 2018-04-23 2018-04-25 Outside nullFlavo MNA [id number] Memoria 20:03:00 04:59:59 Medical r Neurology 01 l Records Cosmo Ambrose 2018-04-23 2018-04-24 Outpatient MHMISCHER MISCHER [id number] 15:03:00 23:59:59 2018-03-29 2018-03-29 Outpatient MHIE MHIE [id number] Memoria 11:15:00 11:15:00 01 l Arnol 2018-03-29 2018-03-29 Outpatient MHIE MHIE [id number] Memoria 11:15:00 11:15:00 01 tulio Ambrose Results Test Description Test Time Test Comments Results Result [facility] e Comments - US TRANSVAGINAL 2021-03-27 NON OB 4 13:29:00 [facility] 1955 Sex: F Name: EMY PORTER [facility] : 1955 Age/S: 65 / F [id number] [address] Unit #: [id number] Loc: [place] [address] Phys: Lexi Cotter MD Acct: [id number] Dis Date: Status: REG CLI PHONE #: [phone] Exam Date: 04/18/2021 1152 FAX #: Reason: RLQ PAIN EXAMS: CPT: [id number] [place] [id number] EXAM: Pelvic ultrasound INDICATION: Right lower quadrant pain COMPARISON: None available LOCATION: S17 TECHNIQUE: Grayscale and color Doppler and spectral Doppler sonographic images were obtained of the pelvis using transabdominal and endovaginal technique. FINDINGS: The neutrally positioned uterus measures 4.7 x 4.0 x 3.0 cm. No uterine masses are seen. Endometrial stripe measures 2 mm in thickness. Multiple calcifications are seen throughout the endometrial stripe. Ovaries are not seen. Right ovary measures 1.3 x 1.0 x 1.0 cm and is unremarkable. Left ovary measures 1.2 x 1.0 x 0.8 cm and is unremarkable. Blood flow is documented in the ovaries on Doppler images. No free fluid. IMPRESSION: 1. Calcifications throughout the endometrial stripe. 2. Otherwise unremarkable exam. at 1329 Reported and signed by: John Caruso M.D. CC: Lexi Cotter MD Technologist: Adelina Gutierrez Trnprb Date/Time: 04/18/2021 (1329) [email or web address] PAGE 1 Signed Report Name: EMY PORTER [facility] : 1955 Age/S: 65 / F [id number] [address] Unit #: [id number] Loc: [place] [address] Phys: Lexi Cotter MD Acct: [id number] Dis Date: Status: REG CLI PHONE #: [phone] Exam Date: 04/18/2021 1152 FAX #: Reason: RLQ PAIN EXAMS: CPT: [id number] [place] [id number] (Continued) Orig Print D/T: S: 04/18/2021 (1332) Probe: [id number] PAGE 2 Signed Report - US PELVIC 2021-03-27 COMPLETE 4 13:29:00 [facility] 1955 Sex: F Name: EMY PORTER [facility] : 1955 Age/S: 65 / F [id number] [address] Unit #: [id number] Loc: [place] [address] Phys: Lexi Cotter MD Acct: [id number] Dis Date: Status: REG CLI PHONE #: [phone] Exam Date: 04/18/2021 1152 FAX #: Reason: RIGHT LOOWER QUADRANT PAIN EXAMS: CPT: [id number] US PELVIC COMPLETE 53793 EXAM: Pelvic ultrasound INDICATION: Right lower quadrant pain COMPARISON: None available LOCATION: S17 TECHNIQUE: Grayscale and color Doppler and spectral Doppler sonographic images were obtained of the pelvis using transabdominal and endovaginal technique. FINDINGS: The neutrally positioned uterus measures 4.7 x 4.0 x 3.0 cm. No uterine masses are seen. Endometrial stripe measures 2 mm in thickness. Multiple calcifications are seen throughout the endometrial stripe. Ovaries are not seen. Right ovary measures 1.3 x 1.0 x 1.0 cm and is unremarkable. Left ovary measures 1.2 x 1.0 x 0.8 cm and is unremarkable. Blood flow is documented in the ovaries on Doppler images. No free fluid. IMPRESSION: 1. Calcifications throughout the endometrial stripe. 2. Otherwise unremarkable exam. at 1329 Reported and signed by: John Caruso M.D. CC: Lexi Cotter MD Technologist: Adelina Gutierrez Trnscb Date/Time: 04/18/2021 (3995) [id number] PAGE 1 Signed Report Name: EMY PORTER : 1955 Age/S: 65 / F [address] [address] Unit #: [id number] Loc: [place] [address] Phys: Lexi Cotter MD Acct: [id number] Dis Date: Status: REG CLI PHONE #: [phone] Exam Date: 04/18/2021 1152 FAX #: Reason: RIGHT LOOWER QUADRANT PAIN EXAMS: CPT: [id number] US PELVIC COMPLETE 89432 (Continued) Orig Print D/T: S: 04/18/2021 (1332) Probe: PAGE 2 Signed Report XR WRIST 3+ VW HISTORY: ORIF left Un iversity of LEFT 7 wrist. FINDINGS: [facility] dical 17:55:48 AP, lateral, Branch oblique views of left wrist are obtained andcompared with 10/02/2020 study. Compression plate is fastened to distalradius using 9 metallic screws, supporting healing fracture of distalradius. The hardware appears to be in good position except the lateral mostscrew into the distal radius near radial styloid process appears to beprotruding into the radioscaphoid joint space by less than 2 mm. Fracturelines are partially visible, indicating incomplete bony union. CONCLUSIONS: Healing fracture distal left radius supported by metallichardware. Please see additional comments above. [facility], Radiant Results Inft User - 10/30/2020 12:56 PM CDTHISTORY: ORIF left wrist.FINDINGS: AP, lateral, oblique views of left wrist are obtained andcompared with 10/02/2020 study. Compression plate is fastened to distalradius using 9 metallic screws, supporting healing fracture of distalradius. The hardware appears to be in good position except the lateral mostscrew into the distal radius near radial styloid process appears to beprotruding into the radioscaphoid joint space by less than 2 mm. Fracturelines are partially visible, indicating incomplete bony union.CONCLUSIONS: Healing fracture distal left radius supported by metallichardware. Please see additional comments above. XR CHEST 1 VW 2020-08-26 Findings and [facility] 9 Impression: ?Clear [facility] 18:13:34 lungs. No pleural Branch effusion or pneumothorax.Heart is normal. No acute osseous abnormality. Linear densities projectingover and inferior to the 11th ribs probably represent calcifications at theanterior costochondral junctions. PORTABLE CHEST RADIOGRAPH History: Surgery Comparison: None available TECHNIQUE: AP view of the chest. [facility], Radiant Results Inft User - 09/13/2020 12:14 PM CSTPORTABLE CHEST RADIOGRAPHHistory: Surgery Comparison: None availableTECHNIQUE: AP view of the chest.IMPRESSIONFin dings and Impression: Clear lungs. No pleural effusion or pneumothorax.Heart is normal. No acute osseous abnormality. Linear densities projectingover and inferior to the 11th ribs probably represent calcifications at theanterior costochondral junctions.
[2022-05-11] MEDS ORDERED: LORazepam 2 MG/ML VIAL ONE (10:56)
[2022-05-11 11:10] LABS: Urine Blood Negative (Negative); Urine Glucose Negative (Negative); Urine Protein Negative (Negative); Urine Specific Gravity <=1.005 (1.005-1.030)
[2022-05-11 11:16] LABS: Absolute Lymphocytes (CBC) 0.4 K/uL (0.7-4.9); Hematocrit 38.3 % (36.0-45.0); MCV 88.7 fL (80-100); MPV 6.3 fL (7.6-11.3); RBC Red Blood Cell Count 4.31 M/uL (3.86-4.86)
[2022-05-11 11:25] LABS: Barbiturates NEGATIVE (NEGATIVE); Benzodiazepines NEGATIVE (NEGATIVE); Cocaine NEGATIVE (NEGATIVE); METHAMPHETAM NEGATIVE (NEGATIVE); Methadone NEGATIVE (NEGATIVE); Opiates NEGATIVE (NEGATIVE); Phencyclidine NEGATIVE (NEGATIVE); THC Cannibis NEGATIVE (NEGATIVE)
[2022-05-11 11:35] LABS: Bilirubin Total 0.4 mg/dL (0.2-1.0); Magnesium 2.3 mg/dL (1.8-2.4); Potassium 3.7 mmol/L (3.5-5.1); Protein, Total 7.5 g/dL (6.4-8.2); Troponin High Sensitivity 5.9 pg/mL (<58.9)
--- NOTE | 2022-05-11 12:25 | EDPHYS ---
Physician Documentation [facility] Name: Gin Duenas Age: 66 yrs Sex: Female : 1955 Arrival Date: 05/11/2022 Time: 10:08 Bed 24 Private MD: DANGELO Physician Angelika Velarde HPI: 05/11 10:38 This 66 yrs old Female presents to ER via Unassigned with complaints of Palpitations, sd2 Shaking. 10:38 66-year-old female presents with chief complaint of tremulousness. She reports a sd2 history of an essential head tremor that has worsened today. She reports her tremors are normally isolated to her head but are now causing shaking down to her waist area. Has been also reports increased stress and anxiety recently as he is having biopsies performed and may possibly have cancer. He also reports the patient has been obsessive over a new medication that was started a few days ago, citalopram, and she has been reading the side effect list daily for that medication. He denies any fevers, chest pain, shortness of breath, vomiting, diarrhea or any other symptoms at this time.. Historical: - Allergies: 10:26 ; iw - Home Meds: 10:26 citalopram 20 mg tab 1 tab once daily [Active]; primidone 50 mg Oral tab twice a day iw [Active]; donepezil 10 mg oral tab twice a day [Active]; - PMHx: 10:26 tremors; iw - PSHx: 10:26 None; iw - Immunization history:: Client reports receiving the 2nd dose of the Covid vaccine. - Social history:: Smoking status: Patient denies any tobacco usage or history of. ROS: 10:38 Constitutional: Negative for fever, chills, and weight loss, Eyes: Negative for injury, sd2 pain, redness, and discharge, Cardiovascular: Negative for chest pain, palpitations, and edema, Respiratory: Negative for shortness of breath, cough, wheezing. Abdomen/GI: Negative for abdominal pain, nausea, vomiting, diarrhea. MS/Extremity: Negative for injury and deformity, Skin: Negative for injury, rash, and discoloration, Neuro: Negative for headache, numbness and tingling. Positive for tremors. Psych: Positive for anxiety. Exam: 10:38 Constitutional: This is a well developed, well nourished patient who is awake, alert, sd2 and in no acute distress. Head/Face: Normocephalic, atraumatic. Eyes: EOMI, normal conjunctiva bilaterally Chest/axilla: Normal chest wall appearance and motion. Nontender with no deformity. Cardiovascular: Regular rate and rhythm with a normal S1 and S2. No gallops, murmurs, or rubs. 2+ distal pulses. Respiratory: Lungs have equal breath sounds bilaterally, clear to auscultation and percussion. No rales, rhonchi or wheezes noted. No increased work of breathing, no retractions or nasal flaring. Abdomen/GI: Soft, non-tender, with normal bowel sounds. No guarding or rebound. No evidence of tenderness throughout. Skin: Warm, dry with normal turgor. Normal color with no rashes, no lesions, and no evidence of cellulitis. MS/ Extremity: Pulses equal, no cyanosis. Neurovascular intact. Full, normal range of motion. Ambulatory without difficulty. Neuro: Awake and alert, GCS 15, oriented to person, place, time, and situation. Cranial nerves II-XII grossly intact. Motor strength 5/5 in all extremities. Sensory grossly intact. Cerebellar exam normal. Pt appears to have resolution of tremor with focus and concentration on certain acts such as deep breathing or FTN testing. Psych: Awake, alert, with orientation to person, place and time. Behavior, mood, and affect are within normal limits. 10:41 ECG was reviewed by the Attending Physician. NSR, rate 68, no STEMI criteria or ST-T sd2 wave changes Vital Signs: 10:29 BP 160 / 80; Pulse 71; Resp 16; Pulse Ox 98% on R/A; Weight 54.43 kg; Height 5 ft. 3 iw in. (160.02 cm); 10:41 BP 166 / 112; Pulse 66; Resp 18; Pulse Ox 100% ; Pain 0/10; ld1 11:11 BP 145 / 76; Pulse 61; Resp 13; Pulse Ox 97% on R/A; ld1 12:11 BP 90 / 55; Pulse 58; Resp 15; Pulse Ox 95% on R/A; ld1 10:29 Body Mass Index 21.26 (54.43 kg, 160.02 cm) iw MDM: 10:37 Patient medically screened. sd2 10:38 Differential diagnosis: anxiety, stress, medication reaction, essential tremor, sd2 electrolyte abnormality, spasm among others. Data reviewed: vital signs, nurses notes. 12:23 Data reviewed: lab test result(s), EKG. Counseling: I had a detailed discussion with sd2 the patient and/or guardian regarding: the historical points, exam findings, and any diagnostic results supporting the discharge/admit diagnosis, lab results, the need for outpatient follow up, to return to the emergency department if symptoms worsen or persist or if there are any questions or concerns that arise at home. Medical screen evaluation completed. [facility] emergency medical condition absent. ED course: Labs reviewed and grossly WNCL. Pt significantly improved after Ativan with no further tremors resting comfortably. Advised discontinuation of Citalopram. Will provide Hydroxyzine prn for anxiety and patient to follow up with PCP. Pt and verbalized understanding of discharge plan and strict return precautions at this time. . 05/11 10:38 Order name: CBC with Diff; Complete Time: 11:39 sd2 05/11 10:38 Order name: CMP; Complete Time: 11:39 sd2 05/11 10:38 Order name: Magnesium; Complete Time: 11:39 sd2 05/11 10:38 Order name: CK; Complete Time: 11:39 sd2 05/11 10:38 Order name: Troponin High Sensitivity; Complete Time: 11:39 sd2 05/11 10:38 Order name: Urine Drug Screen; Complete Time: 11:39 sd2 05/11 11:10 Order name: Urine Dipstick-Ancillary; Complete Time: 11:39 EDMS Administered Medications: 11:10 Drug: Ativan (LORazepam) 1 mg Route: IVP; Site: left antecubital; ld1 Disposition Summary: 05/11/22 12:25 Discharge Ordered Location: Home sd2 Problem: an acute exacerbation sd2 Symptoms: have improved sd2 Condition: Stable sd2 Diagnosis - Tremor, unspecified sd2 - Anxiety sd2 Followup: sd2 - With: Private Physician - When: 2 - 3 days - Reason: Recheck today's complaints, Continuance of care, Re-evaluation by your physician Discharge Instructions: - Discharge Summary Sheet sd2 - Tremor sd2 - Essential Tremor sd2 Forms: - Medication Reconciliation Form sd2 - Thank You Letter sd2 - Antibiotic Education sd2 - Prescription Opioid Use sd2 Prescriptions: - Hydroxyzine HCl 25 mg Oral Tablet - take 1 tablet by ORAL route every 6 hours As needed As needed for anxiety; 15 sd2 tablet; Refills: 0, Product Selection Permitted Signatures: Dispatcher [employer] Megha Rachel RN RN iw Dibbern, Lauren, RN RN ld1 Angelika Velarde MD MD sd2
--- NOTE | 2022-05-11 12:25 | ER ---
Nurse's Notes [facility] Name: Gin Duenas Age: 66 yrs Sex: Female : 1955 Arrival Date: 05/11/2022 Time: 10:08 Bed 24 Private MD: Diagnosis: Tremor, unspecified;Anxiety Presentation: 05/11 10:23 Chief complaint: Spouse and/or significant other states: pt has hx of essential head iw tremors but they are worse today, and she is having tremors down to her waist which isn't normal ,also feels like her heart is racing, started citalopram 20 mg a couple days ago, her PCP has been trying out different anxiety meds but she had a reaction to the previous one also. 10:25 Acuity: RAGHAV 3 iw 13:08 Coronavirus screen: At this time, the client does not indicate any symptoms associated ld1 with coronavirus-19. Ebola Screen: No symptoms or risks identified at this time. Initial Sepsis Screen: Does the patient meet any 2 criteria? No. Patient's initial sepsis screen is negative. Does the patient have a suspected source of infection? No. Patient's initial sepsis screen is negative. Risk Assessment: Do you want to hurt yourself or someone else? Patient reports no desire to harm self or others. Onset of symptoms was May 11, 2022. 13:08 Method Of Arrival: Ambulatory ld1 Triage Assessment: 10:20 General: Appears in no apparent distress. comfortable, Behavior is calm, cooperative, ld1 appropriate for age. Pain: Denies pain. EENT: No signs and/or symptoms were reported regarding the EENT system. Neuro: Level of Consciousness is awake, alert, obeys commands, Oriented to person, place, time, situation. Cardiovascular: Capillary refill < 3 seconds Patient's skin is warm and dry. Respiratory: Airway is patent Respiratory effort is even, unlabored. GI: Abdomen is flat, non-distended. : No signs and/or symptoms were reported regarding the genitourinary system. Derm: No signs and/or symptoms reported regarding the dermatologic system. Musculoskeletal: No signs and/or symptoms reported regarding the musculoskeletal system. Historical: - Allergies: 10:; iw - Home Meds: : citalopram 20 mg tab 1 tab once daily [Active]; primidone 50 mg Oral tab twice a day iw [Active]; donepezil 10 mg oral tab twice a day [Active]; - PMHx: 10:26 tremors; iw - PSHx: 10:26 None; iw - Immunization history:: Client reports receiving the 2nd dose of the Covid vaccine. - Social history:: Smoking status: Patient denies any tobacco usage or history of. Screenin:41 Abuse screen: Denies threats or abuse. Denies injuries from another. Nutritional ld1 screening: No deficits noted. Tuberculosis screening: No symptoms or risk factors identified. Fall Risk None identified. Assessment: 10:41 General: Appears in no apparent distress. comfortable, Behavior is calm, cooperative, ld1 appropriate for age. Pain: Denies pain. Neuro: Level of Consciousness is awake, alert, obeys commands, Oriented to person, place, time, situation, Gait is steady. Cardiovascular: Capillary refill < 3 seconds Patient's skin is warm and dry. Rhythm is sinus rhythm. Respiratory: Airway is patent Respiratory effort is even, unlabored. GI: Abdomen is flat, non-distended. : No signs and/or symptoms were reported regarding the genitourinary system. EENT: No signs and/or symptoms were reported regarding the EENT system. Derm: No signs and/or symptoms reported regarding the dermatologic system. Musculoskeletal: Upper body/abdominal tremors. Vital Signs: 10:29 BP 160 / 80; Pulse 71; Resp 16; Pulse Ox 98% on R/A; Weight 54.43 kg; Height 5 ft. 3 iw in. (160.02 cm); 10:41 BP 166 / 112; Pulse 66; Resp 18; Pulse Ox 100% ; Pain 0/10; ld1 11:11 BP 145 / 76; Pulse 61; Resp 13; Pulse Ox 97% on R/A; ld1 12:11 BP 90 / 55; Pulse 58; Resp 15; Pulse Ox 95% on R/A; ld1 10:29 Body Mass Index 21.26 (54.43 kg, 160.02 cm) iw ED Course: 10:08 Patient arrived in ED. rg4 10:10 Angelika Velarde MD is Attending Physician. sd2 10:25 Triage completed. iw 10:27 Dibbern, Jen, RN is Primary Nurse. ld1 10:29 Arm band placed on. iw 10:41 Patient has correct armband on for positive identification. Placed in gown. Bed in low ld1 position. Call light in reach. Side rails up X2. landscape supervisor on. Pulse ox on. NIBP on. Door closed. Noise minimized. Warm blanket given. 10:41 No provider procedures requiring assistance completed. ld1 11:11 Inserted saline lock: 20 gauge in left antecubital area, using aseptic technique. Blood ld1 collected. Missed attempt(s): 20 gauge in right antecubital area. 13:09 IV discontinued, intact, bleeding controlled, No redness/swelling at site. ld1 Administered Medications: 11:10 Drug: Ativan (LORazepam) 1 mg Route: IVP; Site: left antecubital; ld1 Medication: :41 VIS not applicable for this client. ld1 Outcome: 12:25 Discharge ordered by . sd2 13:08 Discharged to home ambulatory, with family. ld1 13:08 Condition: stable 13:08 Discharge instructions given to patient, Instructed on discharge instructions, follow up and referral plans. Demonstrated understanding of instructions, follow-up care. 13:09 Patient left the ED. ld1 Signatures: Megha Zelaya, Nydia Chirinos RN4 Jen Woodson RN RN ld1 Angelika Velarde MD MD sd2
[2022-05-11 13:44] VITALS: BP 90/55; O2SAT 95
--- NOTE | 2022-05-12 14:05 | EKG ---
Test Date: 2022-05-11 Test Time: 10:38:43 Bus Aide: JESSICA MEASUREMENT RESULTS: Intervals: Rate: 68 DC: 158 QRSD: 74 QT: 392 QTc: 416 [place]: P: 80 DC: 158 QRS: 83 T: 78 INTERPRETIVE STATEMENTS: Normal sinus rhythm Normal ECG Compared to ECG 01/05/2010 09:21:32 No significant changes Electronically Signed On 05-12-22 14:02:15 CDT by Adria Renee
== END 2022-05-11 13:09 | disposition home or self-care (01) ==
LOC: ER 10:07
DX: R25.1 Tremor, unspecified (principal); F41.9 Anxiety disorder, unspecified
CPT/HCPCS: 36415; 80053; 80307; 81003; 82550; 83735; 84484; 85025; 93005; 96374; 99284

== ENCOUNTER 2023-01-18 15:32 | Emergency (ER) | payer OTHER ==
--- OUTSIDE RECORDS SUMMARY | 2023-01-18 15:37 | XMS REPORT | Continuity of Care Document ---
:1955 Author Organization Formerly [facility] t Address [address] [place] [address] [address] [place] [address] Care Team Providers Name Role Phone Asked, No Pcp Primary Care Physician Unavailable Vielka Ruiz MD Attending Clinician Christin SNIDER, Jerica Attending Clinician Lexi Cotter Attending Clinician Unavailable Cr Pelayo MD Attending Clinician Doctor Unassigned, [place] Attending Clinician Unavailable FERNANDO RAGSDALE Attending Clinician Unavailable Nurse, Adc Pob Immunization Attending Clinician Unavailable Fernando Ragsdale DO Attending Clinician Javier Padilla MD Attending Clinician JAVIER PADILLA Attending Clinician Unavailable Ha Stallings MD [...] Details Category Date Date Treatment Clinician Date - - Diagnosis Active 2018-072019-09-10 Memoria UNSPECIFIE UNSPECIFIE 1-04 15:19:00 l D DEMENTIA D DEMENTIA 00:00: He rmann WITHOUT WITHOUT 00 BEH BEH Active 05/29/2019 [place] [facility] Dementia Problem Resolve 2019-12-17 Memoria (disorder) (disorder) d 21:19:29 l Resolved [place] Problem 12/17/2019 [facility] Cobalamin Cobalamin Problem [...] Alessandro debbi (finding) (finding) 21:19:29 l Active [place] Problem 12/17/2019 [facility] No known No known Disease Unive rs active active ity of problems problems [facility] Allergies, Adverse Reactions, Alerts Allergy Allergy Status Severity Reaction(s) Onset Inactive Treating Comm ents Source Name Type Date Date Clinician Sulfamet Propensi Active [facility] hoxazole ty to 11-02 College W/Trimet adverse 00:00: of hoprim reaction 00 Medicin s to e drug Sulfamet Propensi Active Method i hoxazole ty to 10-31 st -Trimeth adverse 00:00: Hospita oprim reaction 00 l s to drug Septra Propensi Active Rash 2020- Univers I.V. ty to 02-18 ity of adverse 00:00: [place] reaction 00 [facility] s Branch SEPTRA DRUG Active Rash 2020- Univers I.V. 02-18 ity of 00:00: 00 [facility] Sulfamet Propensi Active Rash Method i hoxazole ty to 04-04 st -Trimeth adverse 00:00: Hospita oprim reaction 00 l s to drug NO KNOWN Drug Active Univers ALLERGIE Class ity of S [facility] No Known No Known Active Memori a Medicati Medicati l on on [place] Allergie Allergie s s Family History Family Member Diagnosis Comments Start Date Stop Date Source Natural father Heart attack [facility] Natural mother Hypertension [facility] Social History Social Habit Start Date Stop Date Quantity Comments Source History of tobacco Cigarette Smoker [facility] Exposure to Not sure University of SARS-CoV-2 (event) [facility] Gender identity Judaism [facility] Sexual orientation [facility] Alcohol intake 2023-01-12 2023-01-12 Lifetime Judaism 00:00:00 00:00:00 non-drinker Hospital (finding) History of Social 2023-01-12 2023-01-[address] function 00:00:00 00:00:00 Hospital Tobacco use and 2022-09-25 2022-09-25 Smokeless Judaism exposure 00:00:00 00:00:00 tobacco non-user Hospital Social History 2018-03-29 2018-03-29 [facility] nadege 17:03:20 17:03:20 Sex [birth year] At [birth year] [facility] 00:00:00 00:00:00 Hospital Smoking Status Start Date Stop Date Source Tobacco smoking [facility] Hospit al consumption unknown Ex-smoker 2022-11-02 00:00:00 2022-11-02 [facility] ge of 00:00:00 Medicine Never smoked tobacco [facility]spital Medications Ordered Filled Start Stop Current Ordering Indication Dosage Frequency Signature Comments Components Source Medication Medication Date Date Medication? Clinician (SIG) Name Name incobotulin Yes [id number] 200U Me thodi umtoxinA 6-20 st (XEOMIN) 16:15: Hospita injection 00 l 200 Units memantine 2023-0 Yes 10mg Q.5D Take 1 Method i (NAMENDA) 6-20 tablet (10 st 10 MG 11:05: mg total) Hospita tablet 48 by mouth 2 l (two) times a day. vitamin B 2023-0 Yes QD Take by Metho di complex 6-[address] (SUPER B-50 11:05: daily. Hosp [facility] COMPLEX 48 l ORAL) ascorbic 2023-0 Yes 1000mg QD Take 1 Metho di acid, 6-[address] vitamin C, 11:05: (1,000 mg Ho spita (VITAMIN C) 48 total) by l 1000 MG mouth tablet daily. cholecalcif 2023-0 Yes QD Take by Met hodi thang, 6-[address] vitamin D3, 11:05: daily. [facility]osp [facility] (VITAMIN D3 48 l ORAL) vitamin E 2023-0 Yes 400U QD Take 1 Method i 400 UNIT 6-[address] capsule 11:05: (400 Units [facility]osp [facility] 48 total) by l mouth daily. omega 2023-0 Yes QD Take by Methodi 3-dha-epa-f 6-[address] dwaine oil 11:05: daily. Hospita 1,200 48 l (144-216) mg capsule magnesium 2023-0 Yes 250mg QD Take 1 Metho di oxide 250 6-[address] mg 11:05: (250 mg Hospita magnesium 48 total) by l tablet mouth daily. coenzyme 2023-0 Yes 200mg QD Take 1 Method i Q10 200 mg 6-[address] capsule 11:05: (200 mg Hospita 48 total) by l mouth daily. Vitamin E 2023-0 Yes 400U Take 400 Bayl or 268 MG (400 4-10 Units by [facility] ege UNIT) CAPS 13:49: mouth. of 03 Medicin e Constantia-3 2023-0 Yes Take by [facility] Fatty Acids 4-10 mouth [place] (OMEGA-3 13:49: daily. of FISH OIL) 03 Medicin 1200 MG e CAPS Magnesium 2023-0 Yes 250mg Take 250 [place] lana Oxide 250 4-10 mg by [place] MG TABS 13:49: mouth. of 03 Medicin e Coenzyme 2023-0 Yes 200mg Take 200 Bayl or Q10 200 MG 4-10 mg by [place] CAPS 13:49: mouth. of 03 Medicin e Ascorbic 2022-0 Yes 1000mg Take 1,000 B aylor Acid 1000 4-10 mg by College MG TABS 13:49: mouth. of Medicin e memantine Yes 10mg Take 1 Kelechi (NAMENDA) 4-10 Tablet by Colle ge 10 MG 13:43: mouth two of tablet 20 times Medicin daily. e escitalopra 2022-0 Yes 20mg Take 1 Bayl or m (LEXAPRO) 4-04 Tablet by Col lege 20 MG 00:00: mouth of tablet 00 daily. Medicin e incobotulin 2022-0 2022- No [id number] 200U M ethodi umtoxinA 3-21 06-20 st (XEOMIN) 15:45: 16:13 Hospita injection 00 :42 l 200 Units escitalopra 2022-0 Yes 20mg QD 2 tablets M ethodi m (LEXAPRO) 2-23 ([address] 10 MG 00:00: total) Hospita tablet 00 daily. l carbidopa-l 2022- No 2{tbl} Q.5D Take 2 M ethodi evodopa 2-01 03-[address] (SINEMET) 00:00: 00:00 mouth 2 Hosp [facility] 25-100 mg 00 :00 (two) l per tablet times a day. donepezil 2021-07 Yes 10mg Take 1 Kelechi (ARICEPT) 2-08 Tablet by Colle ge 10 MG 00:00: mouth two of tablet 00 times Medicin daily. e donepeziL 2021-07 Yes 10mg Q.5D Take 1 Method i (ARICEPT) 2-08 tablet (10 st 10 MG 00:00: mg total) Hospita tablet 00 by mouth 2 l (two) times a day. traMADoL 50 2020-0 Yes 4647 50mg Take [...] 7-10). Indication s: acute pain traMADoL 50 1-0 Yes 4647 50mg Take 1 Univ ers [...] (scale 7-10). Indication s: acute pain HYDROcodone 2020-0 Yes [...] 2020-0 Yes 4647 1{tbl} Take 1 Un mtaheus -acetaminop 2-20 tablet by ity of hen [...] 7 days. Indication s: acute pain HYDROcodone 2020-2020- No 4647 1{tbl} Take 1 U nivers [...] 7 days. Indication s: acute pain ketorolac No 60mg 60 mg, Unive rs (TORADOL) 09-10 Intramuscu ity of injection 22:30: 22:33 lar, ONCE, [place] 60 mg 00 :00 1 dose, Medical Tue Branch 09/10/20 at 1630, DOROTEO
Fa culty member approving Restricted medication : EMERGENCY ROOM, HYDROcodone 2020- No 1{tbl} 1 tablet, Univers -acetaminop 09-10 Oral, ity of hen (NORCO 22:30: 22:33 ONCE, 1 Sanjay as 5) 5-325 mg 00 :00 dose, Tue Med ical tablet 1 09/10/20 at [facility] h tablet 1630, DOROTEO ibuprofen No 800mg 800 mg, Uni vers (IBU) 09-10 Oral, ity of tablet 800 19:45: 18:40 ONCE, 1 Sanjay as mg 00 :00 dose, [facility] 09/10/20 at Branch 1345, DOROTEO acetaminoph 2020- No 4647 1{tbl} Take 1 U nivers en-codeine 2-16 02-24 tablet by ity of 300-30 mg 00:00: 05:59 mouth [place] tablet 00 :00 every 6 Medical (six) Branch hours as needed for Pain (scale 7-10) for up to 7 days. Indication s: acute pain acetaminoph No 4647 1{tbl} Take 1 U nivers en-codeine 2-16 02-24 tablet by ity of 300-30 mg 00:00: 05:59 mouth [place] tablet 00 :00 every 6 Medical (six) Branch hours as needed for Pain (scale 7-10) for up to 7 days. Indication s: acute pain acetaminoph No 4647 1{tbl} Take 1 U nivers [...] 7 days. Indication s: acute pain acetaminoph No 4647 1{tbl} Take 1 U nivers en-codeine 2-16 02-24 tablet by ity of 300-30 mg 00:00: 05:59 mouth [place] tablet 00 :00 every 6 Medical (six) Branch hours as needed for Pain (scale 7-10) for up to 7 days. Indication s: acute pain acetaminoph No 4647 1{tbl} Take 1 U nivers [...] to 7 days. Indication s: acute pain [facility] Yes See Memori a mtoxinA 100 2-12 Instructio l UNT/ML 20:36: ns, Bring Cb n Injectable 00 to Solution physician' [Botox] s office for injection, X 1 day, # 1 ea, 3 Refill(s), Pharmacy: [facility] Yes See Memori a mtoxinA 100 2-12 Instructio l UNT/ML 20:36: ns, Bring Cb n Injectable 00 to Solution physician' [Botox] s office for injection, X 1 day, # 1 ea, 3 Refill(s), Pharmacy: [facility] [place] [facility] Yes See Memori a mtoxinA 100 2-12 Instructio l UNT/ML 20:36: ns, Bring Cb n Injectable 00 to Solution physician' [Botox] s office for injection, X 1 day, # 1 ea, 3 Refill(s), Pharmacy: [facility] [place] [facility] Yes See Memori a mtoxinA 100 2-12 Instructio l UNT/ML 20:36: ns, Bring Cb n Injectable 00 to Solution physician' [Botox] s office for injection, X 1 day, # 1 ea, 3 Refill(s), Pharmacy: [facility] [place] [facility] No See Memori a mtoxinA 100 2-12 Instructio l UNT/ML 17:46: ns, Bring Cb n Injectable 00 to Solution physician' [Botox] s office for injection, X 1 day, # 1 ea, 3 Refill(s), other [facility] No See Memori a mtoxinA 100 2-12 Instructio l UNT/ML 17:46: ns, Bring Cb n Injectable 00 to Solution physician' [Botox] s office for injection, X 1 day, # 1 ea, 3 Refill(s), other onabotulinu 2020-0 No See Memori a mtoxinA 100 2-12 Instructio l UNT/ML 17:46: ns, Bring Cb n Injectable 00 to Solution physician' [Botox] s office for injection, X 1 day, # 1 ea, 3 Refill(s), other onabotulinu 2020-0 No See Memori a mtoxinA 100 2-12 Instructio l UNT/ML 17:46: ns, Bring Cb n Injectable 00 to Solution physician' [Botox] s office for injection, X 1 day, # 1 ea, 3 Refill(s), other primidone 2018-07 Yes 50 mg = 1 Mem oria 50 mg oral 2-16 tab, PO, l tablet 19:53: BID, # 180 Andree nn 40 tab, 0 Refill(s), Pharmacy: [id number] primidone 2018-07 Yes 50 mg = 1 Mem oria 50 mg oral 2-16 tab, PO, l tablet 19:53: BID, # 180 Andree nn 40 tab, 0 Refill(s), Pharmacy: [id number] primidone 2018-07 Yes 50 mg = 1 Mem oria 50 mg oral 2-16 tab, PO, l tablet 19:53: BID, # 180 Andree nn 40 tab, 0 Refill(s), Pharmacy: [id number] primidone 2018-07 Yes 50 mg = 1 Mem oria 50 mg oral 2-16 tab, PO, l tablet 19:53: BID, # 180 Andree nn 40 tab, 0 Refill(s), Pharmacy: [id number] primidone 2018-07 Yes 50 mg = 1 Mem oria 50 mg oral 2-11 tab, PO, l tablet 17:21: BID, # 60 Cb n 00 tab, 3 Refill(s), Pharmacy: [id number] primidone 2018-07 Yes 50 mg = 1 Mem oria 50 mg oral 2-11 tab, PO, l tablet 17:21: BID, # 60 Cb n 00 tab, 3 Refill(s), Pharmacy: [id number] primidone 2018-07 Yes 50 mg = 1 Mem oria 50 mg oral 2-11 tab, PO, l tablet 17:21: BID, # 60 Cb n 00 tab, 3 Refill(s), Pharmacy: [id number] primidone 2018-07 Yes 50 mg = 1 Mem oria 50 mg oral 2-11 tab, PO, l tablet 17:21: BID, # 60 Cb n 00 tab, 3 Refill(s), Pharmacy: [id number] topiramate 2017-07 No 25 mg = 1 Me moria 25 MG Oral 2-28 tab, PO, l Tablet 21:35: Bedtime, # Andree nn [Topamax] 31 90 tab, 3 Refill(s), Pharmacy: [facility] topiramate 2017-07 No 25 mg = 1 Me moria 25 MG Oral 2-28 tab, PO, l Tablet 21:35: Bedtime, # Andree nn [Topamax] 31 90 tab, 3 Refill(s), Pharmacy: [facility] topiramate 2017-07 No 25 mg = 1 Me moria 25 MG Oral 2-28 tab, PO, l Tablet 21:35: Bedtime, # Andree nn [Topamax] 31 90 tab, 3 Refill(s), Pharmacy: [facility] topiramate 2017-07 No 25 mg = 1 Me moria 25 MG Oral 2-28 tab, PO, l Tablet 21:35: Bedtime, # Andree nn [Topamax] 31 90 tab, 3 Refill(s), Pharmacy: [facility] Vitamin B12 2017-07 Yes 1,000 Memor ia 1000 mcg 2-12 microgram l oral tablet 21:34: = 1 tab, He rmann 00 PO, Daily, # 30 tab, 3 Refill(s), Pharmacy: [facility][id number] Vitamin B12 2017-07 Yes 1,000 Memor ia 1000 mcg 2-12 microgram l oral tablet 21:34: = 1 tab, He rmann 00 PO, Daily, # 30 tab, 3 Refill(s), Pharmacy: [id number] Vitamin B12 2017-07 Yes 1,000 Memor ia 1000 mcg 2-12 microgram l oral tablet 21:34: = 1 tab, He rmann 00 PO, Daily, # 30 tab, 3 Refill(s), Pharmacy: [email or web address][id number] Vitamin B12 2017-07 Yes 1,000 Memor ia 1000 mcg 2-12 microgram l oral tablet 21:34: = 1 tab, He rmann 00 PO, Daily, # 30 tab, 3 Refill(s), Pharmacy: [email or web address][id number] topiramate 2017-07 No 25 mg = 1 Me moria 25 MG Oral 1-08 tab, PO, l Tablet 17:20: Bedtime, X Andree nn [Topamax] 00 90 day, # 90 tab, 3 Refill(s), Pharmacy: [email or web address][id number] topiramate 2017-07 No 25 mg = 1 Me moria 25 MG Oral 1-08 tab, PO, l Tablet 17:20: Bedtime, X Andree nn [Topamax] 00 90 day, # 90 tab, 3 Refill(s), Pharmacy: [email or web address][id number] topiramate 2017-07 No 25 mg = 1 Me moria 25 MG Oral 1-08 tab, PO, l Tablet 17:20: Bedtime, X Andree nn [Topamax] 00 90 day, # 90 tab, 3 Refill(s), Pharmacy: [email or web address][id number] topiramate 2017-07 No 25 mg = 1 Me moria 25 MG Oral 1-08 tab, PO, l Tablet 17:20: Bedtime, X Andree nn [Topamax] 00 90 day, # 90 tab, 3 Refill(s), Pharmacy: [email or web address] #[id number] Immunizations Ordered Filled Immunization Date Status Comments [facility] e Immunization Name Name SARS-COV-2 COVID-19 2021-04-24 Completed Unive rsity of MODERNA VACCINE 00:00:00 [facility] SARS-COV-2 COVID-19 2021-04-24 Completed Unive rsity of MODERNA VACCINE 00:00:00 [facility] SARS-COV-2 COVID-19 2020-10-30 Completed Unive rsity of MODERNA VACCINE 00:00:00 [facility] SARS-COV-2 COVID-19 2020-10-30 Completed Unive rsity of [...] Completed Unive rsity of MODERNA VACCINE 00:00:00 [facility] SARS-COV-2 COVID-19 2020-10-02 Completed Unive rsity of MODERNA VACCINE 00:00:00 [facility] SARS-COV-2 COVID-19 2020-10-02 Completed Unive rsity of MODERNA VACCINE 00:00:00 [facility] SARS-COV-2 COVID-19 2020-10-02 Completed Unive rsity of MODERNA VACCINE 00:00:00 [facility] SARS-COV-2 COVID-19 2020-10-02 Completed Unive rsity of MODERNA VACCINE 00:00:00 [facility] SARS-COV-2 COVID-19 2020-10-02 Completed Unive rsity of MODERNA VACCINE 00:00:00 [facility] Vital Signs Vital Name Observation Time Observation Value Comments Source Systolic blood 2022-11-02 18:46:00 131 mm[Hg] [facility] pressure Medicine Diastolic blood 2022-11-02 18:46:00 69 mm[Hg] [facility] Medicine Heart rate 2022-11-02 18:46:00 72 /min [facility] Body height 2022-11-02 18:46:00 161.3 cm [facility] Body weight 2022-11-02 18:46:00 58.06 kg [facility] BMI 2022-11-02 18:46:00 22.32 kg/m2 [facility] Systolic blood 2021-02-18 13:35:00 124 mm[Hg] Univer sity of pressure [facility] Diastolic blood 2021-02-18 13:35:00 80 mm[Hg] Unive rsity of pressure [facility] Heart rate 2021-02-18 13:35:00 60 /min [facility] Body height 2021-02-18 13:35:00 160 cm [facility] Body weight 2021-02-18 13:35:00 53.524 kg [facility] BMI 2021-02-18 13:35:00 20.90 kg/m2 [facility] Systolic blood 2020-10-30 18:11:00 123 mm[Hg] Univer sity of pressure [place] [facility] Diastolic blood 2020-10-30 18:11:00 82 mm[Hg] Unive rsity of pressure [facility] Heart rate 2020-10-30 18:11:00 80 /min [facility] [place] [facility] Body weight 2020-10-30 18:11:00 52.164 kg [facility] [place] [facility] BMI 2020-10-30 18:11:00 20.37 kg/m2 [facility] [place] [facility] Systolic blood 2020-10-02 19:16:00 124 mm[Hg] Univer sity of pressure [facility] Diastolic blood 2020-10-02 19:16:00 78 mm[Hg] Unive rsity of pressure [facility] Body height 2020-10-02 19:16:00 160 cm [facility] Body weight 2020-10-02 19:16:00 52.164 kg [facility] [place] [facility] BMI 2020-10-02 19:16:00 20.37 kg/m2 [facility] [place] [facility] Systolic blood 2020-09-13 16:05:00 123 mm[Hg] Univer sity of pressure [facility] Diastolic blood 2020-09-13 16:05:00 71 mm[Hg] Unive rsity of pressure [facility] Heart rate 2020-09-13 16:05:00 67 /min [facility] Body height 2020-09-13 16:05:00 160 cm [facility] [place] [facility] Body weight 2020-09-13 16:05:00 52.164 kg [facility] [place] [facility] BMI 2020-09-13 16:05:00 20.37 kg/m2 [facility] [place] [facility] Systolic blood 2020-09-10 23:15:00 114 mm[Hg] Univer sity of pressure [facility] Diastolic blood 2020-09-10 23:15:00 68 mm[Hg] Unive rsity of pressure [facility] Heart rate 2020-09-10 23:15:00 72 /min [facility] Respiratory rate 2020-09-10 23:15:00 18 /min [facility] ers[facility] Oxygen saturation in 2020-09-10 23:15:00 98 /min [facility] Arterial blood by [facility] Pulse oximetry Branch Body temperature 2020-09-10 18:32:00 36.78 Jay[facility] Body weight 2020-09-10 18:32:00 68.04 kg [facility] Systolic blood 2023-01-12 16:04:00 147 mm[Hg] [facility] pressure Diastolic blood 2023-01-12 16:04:00 92 mm[Hg] Metho [facility] pressure Heart rate 2023-01-12 16:04:00 76 /[facility] 2023-01-12 16:04:00 36.5 Jaylin [facility] 2023-01-12 16:04:00 161.3 [facility] weight 2023-01-12 16:04:00 55.157 [facility] BMI 2023-01-12 16:04:00 21.20 kg/m2 [facility] Systolic (mm Hg) 2019-10-10 18:50:00 Alessandro rial [place] Diastolic (mm Hg) 2019-10-10 18:50:00 Mem orial [place] Heart Rate 2019-10-10 18:50:00 [facility] [place] Respitory Rate 2019-10-10 18:50:00 Memori al [place] Height 2019-10-10 18:50:00 160.02 cm [facility] [place] Weight 2019-10-10 18:50:00 [facility] [place] BMI Calculated 2019-10-10 18:50:00 Memori al [place] Height 2019-09-06 16:45:00 160.02 cm [facility] [place] Weight 2019-09-06 16:45:00 [facility] [place] BMI Calculated 2019-09-06 16:45:00 Memori al [place] Systolic (mm Hg) 2019-09-06 16:45:00 Alessandro rial [place] Diastolic (mm Hg) 2019-09-06 16:45:00 Mem orial [place] Heart Rate 2019-09-06 16:45:00 [facility] [place] Respitory Rate 2019-09-06 16:45:00 Memori al [place] Systolic (mm Hg) 2019-07-05 16:33:00 Alessandro rial [place] Diastolic (mm Hg) 2019-07-05 16:33:00 Mem orial [place] Heart Rate 2019-07-05 16:33:00 [facility] [place] Respitory Rate 2019-07-05 16:33:00 Memori al [place] Height 2019-07-05 16:33:00 162.56 cm [facility] [place] Weight 2019-07-05 16:33:00 [facility] [place] BMI Calculated 2019-07-05 16:33:00 Memori [facility] [place] Systolic (mm Hg) 2019-05-02 16:00:00 Alessandro rial [place] Diastolic (mm Hg) 2019-05-02 16:00:00 Mem orial [place] Heart Rate 2019-05-02 16:00:00 [facility] [place] Respitory Rate 2019-05-02 16:00:00 Memori al [place] Height 2019-05-02 16:00:00 160.02 cm [facility] [place] Weight 2019-05-02 16:00:00 [facility] [place] BMI Calculated 2019-05-02 16:00:00 Memori al [place] BMI Calculated 2019-01-20 18:06:00 Memori al [place] Weight 2019-01-20 18:06:00 [facility] [place] Respitory Rate 2019-01-20 18:06:00 Memori al [place] Heart Rate 2019-01-20 18:06:00 [facility] [place] Height 2019-01-20 18:06:00 160.02 cm [facility] [place] Systolic (mm Hg) 2019-01-20 18:06:00 Alessandro rial [place] Diastolic (mm Hg) 2019-01-20 18:06:00 Mem orial [place] Weight 2018-07-06 20:45:00 [facility] [place] Height 2018-07-06 20:45:00 129.54 cm [facility] [place] BMI Calculated 2018-07-06 20:45:00 Memori al [place] Heart Rate 2018-07-06 20:45:00 [facility] [place] Systolic (mm Hg) 2018-07-06 20:45:00 Alessandro rial [place] Diastolic (mm Hg) 2018-07-06 20:45:00 Mem orial [place] Procedures Procedure Date / Time Performing Clinician Source Performed NM BRAIN SPECT W I 123 2021-10-31 20:04[facility]00 [facility] 2021-05-16 05:01:00 Doctor Unassigned , [facility] [place] [facility] SARS-COV-2 COVID-19 2021-04-24 14:51:10 Doctor Izzy [facility] VACCINE,0.5ML,IM (MODERNA) [place] [facility] REFERRAL- REQUEST/RESPONSE 2021-01-09 05:01:00 Doctor Izzy , [facility] [place] [facility] REFERRAL- REQUEST/RESPONSE 2020-11-07 05:01:00 Doctor Izzy , [facility] [place] [facility] [place] XR WRIST 3+ VW LEFT 2020-10-30 17:42:51 Ha Stallings [facility] XR WRIST <3 VW LEFT 2020-10-02 19:22:32 Tod Haas [facility] 2020-09-18 06:01:00 Doctor Izzy, [facility] DOCUMENTATION [place] [facility] [place] XR CHEST 1 VW 2020-09-13 18:00:48 Ha Stallings [facility] ED ORTHOPEDIC INJURY 2020-09-11 00:00:00 Katelin [facility] TREATMENT - FRACTURE Medical Bra nch XR WRIST 3+ VW LEFT 2020-09-10 19:21:52 Femi Pimentel [facility] XR FOREARM 2 VW LEFT 2020-09-10 19:21:31 Femi Pimentel [facility] NOTICE OF PRIVACY 2020-09-10 18:19:58 Doctor Izzy, [facility] PRACTICES [place] [facility] [place] of 2019-10-10 22:28:00 [facility] muscle(s); neck muscle(s), excluding muscles of the larynx, unilateral (eg, for cervical dystonia, spasmodic torticollis) Breast reconstruction [facility] nadege RODRIGUEZ [facility] Plan of Care Planned Activity Planned Date Details Comments Source Future Scheduled 2023-01-15 Screening for [facility] Test 12:49:55 malignant neoplasm of Hospit al colon (procedure) [code = 966398876] Future Scheduled 2023-01-15 Screening for [facility] Test 12:49:55 malignant neoplasm of Hospit al colon (procedure) [code = 287135959] Future Scheduled 2023-01-15 Screening for [facility] Test 12:49:55 malignant neoplasm of Hospit al colon (procedure) [code = 796453611] Future Scheduled 2023-01-15 Hepatitis C screening [facility] Test 12:49:55 (procedure) [code = Hospital 909413931] Future Scheduled 2023-01-15 Screening for [facility] Test 12:49:55 malignant neoplasm of Hospit al cervix (procedure) [code = 270603522] Future Scheduled 2023-01-15 BREAST CANCER [facility] Test 12:49:55 SCREENING [code = Hospital BREAST CANCER SCREENING] Future Scheduled 2023-01-15 Screening for [facility] Test 12:49:55 malignant neoplasm of Hospit al colon (procedure) [code = 185733587] Future Scheduled 2023-01-15 Screening for [facility] Test 12:49:55 malignant neoplasm of Hospit al colon (procedure) [code = 324079032] Future Scheduled 2023-01-15 COVID-19 VACCINE (5 - [facility] Test 12:49:55 Moderna series) [code Hospit al = COVID-19 VACCINE (5 - Moderna series)] Future Scheduled 2023-01-15 65+ PNEUMOCOCCAL Methodi [facility] Test 12:49:55 VACCINE (1 - PCV) Hospital [code = 65+ PNEUMOCOCCAL VACCINE (1 - PCV)] Future Scheduled 2023-01-15 INFLUENZA VACCINE Method ist Test 12:49:55 [code = INFLUENZA Hospital VACCINE] Future Scheduled 2022-11-02 FLU VACCINE > 6 MONTHS [employer] Test 15:51:41 [code = FLU VACCINE > of Med icine 6 MONTHS] Future Scheduled 2022-11-02 Fall Screen [code = [employer] Test 15:51:41 Fall Screen] of Medicine Future Scheduled 2022-11-02 [facility] Test 15:51:41 malignant neoplasm of of Med icine colon (procedure) [code = 375457818] Future Scheduled 2022-11-02 Screening for [facility] Test 15:51:41 malignant neoplasm of of Med icine breast (procedure) [code = 403836204] Future Scheduled 2022-11-02 TETANUS SHOT (ADULT) [place] [employer] Test 15:51:41 [code = TETANUS SHOT of Medi cine (ADULT)] Future Scheduled 2022-11-02 Hepatitis C screening [employer] Test 15:51:41 (procedure) [code = of Medic ine 096905837] Future Scheduled 2022-11-02 COVID-19 Vaccine (4 - Ba [facility] Test 15:51:41 Booster for Moderna of Medic ine series) [code = COVID-19 Vaccine (4 - Booster for Moderna series)] Future Scheduled 2022-11-02 Screening for [facility] Test 15:51:41 osteoporosis of Medicine (procedure) [code = 893905371] Future Scheduled 2022-11-02 Pneumococcal 65+ (1 - Ba [facility] Test 15:51:41 PCV) [code = of Medicine Pneumococcal 65+ (1 - PCV)] Future Scheduled 2022-11-02 JOSELINE REFLEX TO NUCLEAR Ordered: [facility] Test 15:09:57 AB PANEL [code = 11/02/2022 of Medicine NOCPT] Future Scheduled 2022-11-02 APOLIPOPROTEIN E Ordered: [facility] Test 15:09:57 MUTATION - CARDIAC 11/02/2022 of Medici ne [code = 75295-7] Future Scheduled 2022-11-02 CBC W/AUTO DIFF WITH Ordered: [facility] Test 15:09:57 PLATELETS [code = 11/02/2022 of Medicin e 78119-8] Future Scheduled 2022-11-02 COMPREHENSIVE Ordered: [facility] Test 15:09:57 METABOLIC PANEL [code 11/02/2022 of Med icine = 90079-3] Future Scheduled 2022-11-02 PROTEIN Ordered: [facility] Test 15:09:57 ELECTROPHORESIS - 11/02/2022 of Medicin e REFLEX TO IMMUNOFIXATION [code = NOCPT] Future Scheduled 2022-11-02 TSH + FREE T4 PROFILE Ordered: [facility] Test 15:09:57 [code = NOCPT] 11/02/2022 of Medicine Future Scheduled 2022-11-02 VITAMIN B12 [code = Ordered: [facility] Test 15:09:57 2132-9] 11/02/2022 of Medicine Future Scheduled 2022-11-02 HEMOGLOBIN A1C [code = Ordered: [facility] [employer] Test 15:09:57 4548-4] 11/02/2022 of Medicine Future Scheduled 2022-11-02 VITAMIN D 25 HYDROXY Ordered: [facility] Test 15:09:57 [code = 1989-3] 11/02/2022 of Medicine Future Scheduled 2022-11-02 FOLATE [code = 2284-8] Ordered: [employer] Test 15:09:57 11/02/2022 of Medicine Future Scheduled 2022-11-02 RPR - W RFLX TO [facility] Ordered: [employer] Test 15:09:57 [code = 59656-0] 11/02/2022 of Medicine Future Scheduled 2022-04-14 HEPATITIS B VACCINES [facility] Test 03:37:59 (1 of 3 - 3-dose Hospital series) [code = HEPATITIS B VACCINES (1 of 3 - 3-dose series)] Future Scheduled 2022-04-14 Hepatitis C screening [facility] Test 03:37:59 (procedure) [code = Hospital 969678505] Future Scheduled 2022-04-14 Screening for [facility] Test 03:37:59 malignant neoplasm of Hospit al cervix (procedure) [code = 364502355] Future Scheduled 2022-04-14 BREAST CANCER [facility] Test 03:37:59 SCREENING [code = Hospital BREAST CANCER SCREENING] Future Scheduled 2022-04-14 COLONOSCOPY SCREENING [facility] Test 03:37:59 [code = COLONOSCOPY Hospital SCREENING] Future Scheduled 2022-04-14 COVID-19 VACCINE (5 - [facility] Test 03:37:59 Booster for Moderna Hospital series) [code = COVID-19 VACCINE (5 - Booster for Moderna series)] Future Scheduled 2022-04-14 INFLUENZA VACCINE Method ist Test 03:37:59 [code = INFLUENZA Hospital VACCINE] Future Scheduled 2022-04-14 HEPATITIS B VACCINES [facility] Test 03:37:59 (1 of 3 - 3-dose Hospital series) [code = HEPATITIS B VACCINES (1 of 3 - 3-dose series)] Future Scheduled 2022-04-14 Hepatitis C screening [facility] Test 03:37:59 (procedure) [code = Hospital 448933169] Future Scheduled 2022-04-14 Screening for [facility] Test 03:37:59 malignant neoplasm of Hospit al cervix (procedure) [code = 860540442] Future Scheduled 2022-04-14 BREAST CANCER [facility] Test 03:37:59 SCREENING [code = Hospital BREAST CANCER SCREENING] Future Scheduled 2022-04-14 COLONOSCOPY SCREENING [facility] Test 03:37:59 [code = COLONOSCOPY Hospital SCREENING] Future Scheduled 2022-04-14 COVID-19 VACCINE (5 - [facility] Test 03:37:59 Booster for Moderna Hospital series) [code = COVID-19 VACCINE (5 - Booster for Moderna series)] Future Scheduled 2022-04-14 INFLUENZA VACCINE Method ist Test 03:37:59 [code = INFLUENZA Hospital VACCINE] Encounters Start End Encounter Admission Attending Care Care Encounter Source Date/Time Date/Time Type Type Clinicians Facility Department ID 2019-06-08 Outpatient MHSE MHSE [id number] 08:24:03 [facility] 2023-01-12 2023-01-12 Clinical Vielka Ruiz 1.2.840.1 [id number] Methodi 10:30:00 11:40:[address] 3.430.2.7 Hospit a .3.856541 l .8 2023-01-12 2023-01-12 Outpatient VIELKA RUIZ [facility] [id number] [place] 00:00:00 00:00:[address] 2022-12-29 2022-12-29 Travel 1.2.840.1 1.2.291.188 [id number] Methodi 00:00:00 00:00:[address] 3.430.2.7 0.2.7.3.698 spita .3.937430 084.8 l .8 2022-11-02 2022-11-02 Office ALETHA Waller 1.2.840.114 [id number] [facility] 14:00:00 15:32:53 Visit [employer] 350.1.13.21 College Y 0.2.7.2.686 of [phone] Medi hernando 850 e 2022-10-13 2022-10-13 Clinical Vielka Ruiz 1.2.840.1 [id number] 21 [id number] Methodi 10:30:00 10:54:[address] 3.430.2.7 Hospit a .3.436039 l .8 2022-10-13 2022-10-13 Travel 1.2.840.1 1.2.620.777 4798 [id number] Methodi 00:00:00 00:00:[address] 3.430.2.7 0.2.7.3.698 Ho spita .3.216555 084.8 l .8 2022-10-13 2022-10-13 Outpatient VIELKA RUIZ [facility] [id number] [place] 00:00:00 00:00:[address] 2022-09-28 2022-09-28 Transcribe Vielka Ruiz 1.2.840.1 [id number] Methodi 00:00:00 00:00:[address] 3.430.2.7 Hospit a .3.508643 l .8 2022-09-25 2022-09-25 Office Vielka Ruiz 1.2.840.1 [id number] Methodi 10:30:00 11:32:[address] 3.430.2.7 Hospit a .3.753374 l .8 2022-09-25 2022-09-25 Outpatient VIELKA RUIZ [facility] [id number] [place] 00:00:00 00:00:[address] 2022-09-25 2022-09-25 Travel 1.2.840.1 1.2.301.520 6890 [id number] Methodi 00:00:00 00:00:[address] 3.430.2.7 0.2.7.3.698 Ho spita .3.907674 084.8 l .8 2022-09-22 2022-09-22 Travel 1.2.840.1 1.2.878.692 5527 737694 Methodi 00:00:00 00:00:[address] 3.430.2.7 0.2.7.3.698 Ho spita .3.093830 084.8 l .8 2022-04-24 2022-04-24 Outpatient VISHAL Cotter, [facility] ANNABELLA [id number] [facility] 08:00:00 08:00:00 Lexi Corado [facility] 2021-10-31 2021-10-31 [facility], 1.2.840.1 [id number] Methodi 08:44:17 23:59:[address] ElmerIvonne 45574.1.[address] 3.430.2.7 Hospit a .3.556843 l .8 2021-10-31 2021-10-31 [facility], 1.2.840.1 [id number] [id number] Methodi 08:44:09 23:59:[address] Zavala [address]7764.1.[address] 3.430.2.7 Hospit a .3.932830 l .8 2021-10-31 2021-10-31 Travel 1.2.840.1 1.2.319.329 5708 [id number] Methodi 00:00:00 00:00:[address] 3.430.2.7 0.2.7.3.698 Ho spita .3.433452 084.8 l .8 2021-10-06 2021-10-06 Travel 1.2.840.1 1.2.249.823 4353 410643 Methodi 00:00:00 00:00:[address] 3.430.2.7 0.2.7.3.698 Ho spita .3.744694 084.8 l .8 2021-09-26 2021-09-26 Transcribe [place], 1.2.840.1 [id number] 2 [id number] Methodi 00:00:00 00:00:[address] Zavala [address]44.1.[address] 3.430.2.7 Hospit a .3.319512 l .8 2021-05-16 2021-05-16 Orders Doctor AU 1.2.840.114 [id number] Univers 00:00:00 00:00:00 Only Unassigned, EFRA 350.1.13.10 ity of [place] [facility] 4.2.7.2.686 Sanjay as [phone] [address] 2021-04-24 2021-04-24 Outpatient Kelly [facility] [id number] Univers 10:10:00 10:10:00 FERNANDO bradley [facility] 2021-04-24 2021-04-24 Imm/Inj Nurse, Adc Pob Immunization [facility] 1.2.840.114 [id number] Univers 08:56:48 08:57:05 Visit Fernando [place] 350.1.13 .10 ity of [place] Profess[place] [phone] Tn dical nal 421 [facility] 2021-04-18 2021-04-18 Outpatient VISHAL Cotter [facility] ANNABELLA [id number] [facility] 12:00:00 12:00:00 Lexi 33 [facility] 2021-04-18 2021-04-18 Inpatient VISHAL Cotter [facility] RADI [id number] [facility] 12:00:00 10:35:00 Lexi 79 [facility] 2021-02-18 2021-02-18 Office Yazan [facility] 1.2.840.114 [id number] Univers 08:21:52 08:51:52 Visit [facility] 350.1.13.10 it y of [place] 4.2.7.2.686 Sanjay as Professio [phone] [facility] [address] [place] [address] 2021-02-18 2021-02-18 Outpatient Kelly [facility] [id number] Univers 08:30:00 08:30:00 JAVIER bradley [facility] 2021-01-09 2021-01-09 Orders Doctor AU 1.2.840.114 [id number] Univers 00:00:00 00:00:00 Only Unassigned, EFRA 350.1.13.10 ity of [place] [facility] 4.2.7.2.686 Sanjay as [phone] [address] 2020-11-07 2020-11-07 Orders Doctor ROE 1.2.840.114 [id number] Univers 00:00:00 00:00:00 Only Unassigned, EFRA 350.1.13.10 ity of [place] [facility] 4.2.7.2.686 Sanjay as [phone] [facility] [address] 2020-10-30 2020-10-30 [facility] 1.2.840.114 [id number] Univers 12:21:36 23:59:00 Encounter Ha Garcia 350.1.13.10 ity of [place] 4.2.7.2.686 [place] [facility] [phone] [facility] [address] 2020-10-30 2020-10-30 Office [facility] 1.2.840.114 [id number] Univers 12:54:07 13:09:07 Visit [facility] 350.1.13.10 it y of Surgical 4.2.7.2.686 Sanjay as Specialti [phone] Tn dical es 198 [facility] 2020-10-30 2020-10-30 Outpatient [facility] [id number] Univers 13:00:00 13:00:00 KAIT [facility] 2020-10-29 2020-10-29 Telephone [facility] 1.2.840.114 [id number] Univers 00:00:00 00:00:00 Ha [facility] 350.1.13.10 it y of Surgical 4.2.7.2.686 Sanjay as Specialti [phone] Tn dical es 198 [facility] 2020-10-02 2020-10-02 [facility] 1.2.840.114 [id number] Univers 13:22:31 23:59:00 Encounter [facility] 350.1.13.10 ity of Surgical 4.2.7.2.686 Sanjay as Specialti [phone] Tn dical es 809 [facility] 2020-10-02 2020-10-02 Outpatient R [facility] [id number] Univers 13:22:31 23:59:00 [facility] 2020-10-02 2020-10-02 Office Tod Haas [facility] 1.2.840.114 [id number] Univers 13:07:38 13:22:38 Visit Ha Stallings 350.1.13.10 ity of Surgical 4.2.7.2.686 Sanjay as Specialti [phone] Tn dical es 198 [facility] 2020-10-02 2020-10-02 Outpatient Kelly [facility] [id number] Univers 13:00:00 13:00:00 KAIT ity [facility] 2020-09-18 2020-09-18 Hospital Chandrakant CASIE 1.2.840.114 [id number] Univers 13:11:00 23:59:00 Encounter Ha AMBROSE 350.1.13.10 [place]y [place] [phone] [facility] [address] 2020-09-18 2020-09-18 Outpatient [facility] NUT [id number] Univers 00:00:00 00:00:00 HA itagnieszka [facility] 2020-09-18 2020-09-18 Orders Doctor ROE 1.2.840.114 [id number] Univers 00:00:00 00:00:00 Only Unassigned, EFRA 350.1.13.10 ity of [place] [facility] 4.2.7.2.686 Sanjay as [phone] [facility] [address] 2020-09-14 2020-09-14 ROE Silva 1.2.840.114 [id number] Univers 00:00:00 00:00:00 Vikki KRAUS 350.1.13.10 ity of HOSPITAL 4.2.7.2.686 Sanjay as [phone] [facility] [address] 2020-09-14 2020-09-14 Telephone Chandrakant [facility] 1.2.840.114 [id number] Univers 00:00:00 00:00:00 Ha [facility] 350.1.13.10 it y of Surgical 4.2.7.2.686 Sanjay as Specialti [phone] Tn dical es 198 [facility] 2020-09-13 2020-09-13 Dye Machine Tender Miguel, [place] [facility] 1.2.8 40.114 [id number] Univers 11:09:34 11:24:34 Visit Ha Stallings 350.1.13.10 ity of [place].2.[place] [phone] Tn dical nal 353 [facility] 2020-09-13 2020-09-13 Hospital [facility] 1.2.840.114 [id number] Univers 11:08:24 11:12:00 Encounter Ha Garcia 350.1.13.10 ity of [place] 4.2.7.2.686 [place] [phone] [facility] [address] 2020-09-13 2020-09-13 Office [facility] 1.2.231.900 [id number] Univers 09:57:56 10:35:18 Visit Ha [facility] 350.1.13.10 it y of Surgical 4.2.7.2.686 Sanjay as Specialti [phone] Tn dical es 198 [facility] 2020-09-13 2020-09-13 Outpatient R [facility] [id number] Univers 10:15:00 10:15:00 HA bradley [facility] 2020-09-10 2020-09-10 Emergency [place], [facility] 1.2.840.114 [id number] Univers 12:52:00 19:07:00 Katelin Garcia 350.1.13.10 i ty of [place].2.7.2.686 [place] [phone] [facility] [address] 2020-09-10 2020-09-10 Emergency X [facility] ERT [id number] Univers 12:17:00 12:17:00 ity of [facility] 2019-12-15 2019-12-15 Ambulatory nullFlavo MNA [id number] Memoria 15:00:00 15:00:00 Pre-Reg r Neurology 11 l [place] 2019-12-15 2019-12-15 Ambulatory nullFlavo MNA [id number] Memoria 15:00:00 15:00:00 Pre-Reg r Neurology 11 l Cosmo Gunnann 2019-12-15 2019-12-15 Outpatient Zeinab MHMISCHER MHMISCHER [id number] 10:00:00 10:00:00 Silviano 11 Sraoj 2019-11-21 2019-11-21 Outpatient MHIE MHIE [id number] Memoria 14:30:00 14:30:00 11 l [place] 2019-10-10 2019-10-11 Outpatient nullFlavo MNA [id number] Memoria 19:00:00 04:59:59 r Neurology 10 l Cosmo Arnol 2019-10-10 2019-10-11 Outpatient nullFlavo MNA [id number] Memoria 19:00:00 04:59:59 r Neurology 10 l Cosmo [place] 2019-10-10 2019-10-10 Outpatient Zeinab MISCHER MISCHER [id number] 14:00:00 23:59:59 Silviano 10 Saroj 2019-10-10 2019-10-10 Outpatient MHIE MHIE [id number] Memoria 14:00:00 14:00:00 10 l [place] 2019-09-18 2019-09-20 Outside nullFlavo MNA [id number] Memoria 16:05:31 05:59:59 Medical r Neurology 08 l Records Cosmo [place] 2019-09-18 2019-09-20 Outside nullFlavo MNA [id number] Memoria 16:05:31 05:59:59 Medical r Neurology 08 l Records [place] 2019-09-18 2019-09-19 Outpatient MHMISCHER MHMISCHER [id number] 10:05:31 23:59:59 08 2019-09-06 2019-09-07 Outpatient nullFlavo MNA [id number] Memoria 16:45:00 05:59:59 r Neurology 09 l Cosmo [place] 2019-09-06 2019-09-07 Outpatient nullFlavo MNA [id number] Memoria 16:45:00 05:59:59 r Neurology 09 l Cosmo [place] 2019-09-06 2019-09-06 Outpatient CATHY ArriolaMISCHER MHMISCHER [id number] 10:45:00 23:59:59 Silviano 09 [facility] 2019-09-06 2019-09-06 Outpatient MHIE MHIE [id number] Memoria 10:45:00 10:45:00 09 tulio GunnArnol 2019-09-01 2019-09-01 Outpatient VIRIDIANA Mullins [id number] [facility] 12:00:00 12:00:00 Lexi Kapadia [facility] 2019-07-05 2019-07-06 Outpatient nullFlavo MNA [id number] Memoria 16:45:00 05:59:59 r Neurology 08 tulio Ravalli Arnol 2019-07-05 2019-07-06 Outpatient nullFlavo MNA [id number] Memoria 16:45:00 05:59:59 r Neurology 08 tulio [place] Arnol 2019-07-05 2019-07-05 Outpatient Zeinab MISCHER MHMISCHER [id number] 10:45:00 23:59:59 Silviano Vonnie Saroj 2019-07-05 2019-07-05 Outpatient MHIE MHIE [id number] Memoria 10:45:00 10:45:00 08 tulio Arnol 2019-05-02 2019-05-03 Outpatient nullFlavo MNA [id number] Memoria 16:30:00 04:59:59 r Neurology 07 tulio Ravalli Arnol 2019-05-02 2019-05-03 Outpatient nullFlavo MNA [id number] Memoria 16:30:00 04:59:59 r Neurology 07 tulio [place] 2019-05-02 2019-05-02 Outpatient CATHY ArriolaKYSCHER MISCHER [id number] 11:30:00 23:59:59 Silviano Laura Kyle 2019-05-02 2019-05-02 Outpatient MHIE MHIE [id number] Memoria 11:30:00 11:30:00 07 tulio Arnol 2019-04-28 2019-04-28 Ambulatory nullFlavo MNA [id number] Memoria 18:00:00 18:00:00 Pre-Reg r Neurology 06 l Ravalli Arnol 2019-04-28 2019-04-28 Ambulatory nullFlavo MNA [id number] Memoria 18:00:00 18:00:00 Pre-Reg r Neurology 06 l [place] Arnol 2019-04-28 2019-04-28 Outpatient MHIE MHIE [id number] Memoria 13:00:00 13:00:00 06 tulio Ambrose 2019-04-28 2019-04-28 Outpatient [facility] [id number] 13:00:00 13:00:00 Silviano Alexandra Kyle 2019-01-20 2019-01-21 Outpatient nullFlavo MNA [id number] Memoria 18:15:00 04:59:59 r Neurology 05 l Cosmo Ambrose 2019-01-20 2019-01-21 Outpatient nullFlavo MNA [id number] Memoria 18:15:00 04:59:59 r Neurology 05 l Cosmo Ambrose 2019-01-20 2019-01-20 Outpatient Zeinab [facility] [id number] 13:15:00 23:59:59 Silviano Serafin Kyle 2019-01-20 2019-01-20 Outpatient MHIE MHIE [id number] Memoria 13:15:00 13:15:00 05 tulio Ambrose 2018-12-26 2018-12-28 Outside nullFlavo MNA [id number] Memoria 14:25:27 04:59:59 Medical r Neurology 07 l Records Cosmo Ambrose 2018-12-26 2018-12-28 Outside nullFlavo MNA [id number] Memoria 14:25:27 04:59:59 Medical r Neurology 07 l Records Cosmo Ambrose 2018-12-26 2018-12-27 Outpatient MHMISCHER MHMISCHER [id number] 09:25:27 23:59:59 2018-12-02 2018-12-02 Ambulatory nullFlavo MNA [id number] Memoria 21:00:00 21:00:00 Pre-Reg r Neurology 04 l Cosmo Ambrose 2018-12-02 2018-12-02 Ambulatory nullFlavo MNA [id number] Memoria 21:00:00 21:00:00 Pre-Reg r Neurology 04 l Cosmo Gunnann 2018-12-02 2018-12-02 Outpatient Zeinab MISCHER MISCHER [id number] 16:00:00 16:00:00 Silvaino Singh Saroj 2018-11-16 2018-11-16 Outpatient MHIE MHIE [id number] Memoria 15:45:00 15:45:00 04 tulio Ambrose 2018-10-07 2018-10-07 Outpatient MHIE MHIE [id number] Memoria 14:30:00 14:30:00 03 tulio Ambrose 2018-10-07 2018-10-07 Outpatient MHIE MHIE [id number] Memoria 14:30:00 14:30:00 03 tulio Ambrose 2018-07-30 2018-08-01 Outside nullFlavo MNA [id number] Memoria 18:02:00 05:59:59 Medical r Neurology 04 l Records Cosmo Ambrose 2018-07-30 2018-08-01 Outside nullFlavo MNA [id number] Memoria 18:02:00 05:59:59 Medical r Neurology 04 l Records Cosmo Ambrose 2018-07-30 2018-07-31 Outpatient MHMISCHER MHMISCHER [id number] 12:02:00 23:59:59 04 2018-07-22 2018-07-24 Phone nullFlavo MNA [id number] Memoria 20:41:00 05:59:59 Message r Neurology 03 tulio Ambrose 2018-07-22 2018-07-24 Phone nullFlavo MNA [id number] Memoria 20:41:00 05:59:59 Message r Neurology 03 tulio Ambrose 2018-07-22 2018-07-23 Outpatient MHMISCHER MHMISCHER [id number] 14:41:00 23:59:59 03 2018-07-06 2018-07-07 Outpatient nullFlavo MNA [id number] Memoria 20:45:00 05:59:59 r Neurology 02 tulio Ambrose 2018-07-06 2018-07-07 Outpatient nullFlavo MNA [id number] Memoria 20:45:00 05:59:59 r Neurology 02 tulio Ambrose 2018-07-06 2018-07-06 Outpatient Zeinab MISCHER MISCHER [id number] 14:45:00 23:59:59 Silviano Ida Kyle 2018-07-06 2018-07-06 Outpatient MHIE MHIE [id number] Memoria 14:45:00 14:45:00 02 tulio Ambrose 2018-06-02 2018-06-04 Phone nullFlavo MNA [id number] Memoria 15:03:00 05:59:59 Message r Neurology 02 l Cosmo Ambrose 2018-06-02 2018-06-04 Phone nullFlavo MNA [id number] Memoria 15:03:00 05:59:59 Message r Neurology 02 l Cosmo Ambrose 2018-06-02 2018-06-03 Outpatient MHMISCHER MHMISCHER [id number] 09:03:00 23:59:59 02 2018-04-23 2018-04-25 Outside nullFlavo MNA [id number] Memoria 20:03:00 04:59:59 Medical r Neurology 01 l Records Cosmo Ambrose 2018-04-23 2018-04-25 Outside nullFlavo MNA [id number] Memoria 20:03:00 04:59:59 Medical r Neurology 01 l Records Cosmo Ambrose 2018-04-23 2018-04-24 Outpatient MHMISCHER MHMISCHER [id number] 15:03:00 23:59:59 01 2018-03-29 2018-03-29 Outpatient MHIE MHIE [id number] Memoria 11:15:00 11:15:00 01 tulio Arnol 2018-03-29 2018-03-29 Outpatient MHIE MHIE [id number] Memoria 11:15:00 11:15:00 01 tulio Ambrose Results Test Description Test Time Test Comments Results Result [facility] e Comments - US TRANSVAGINAL 2021-03-27 NON OB 4 13:29:00 [facility] POR[facility] ANN : 1955 Sex: F Name: EMY PORTER ANN [facility] : 1955 Age/S: 65 / F [id number] [place] Unit #: [id number] Loc: [place] [address] Phys: Lexi Cotter MD Acct: [id number] Dis Date: Status: REG CLI PHONE #: [phone] Exam Date: 04/18/2021 1152 FAX #: Reason: RLQ PAIN EXAMS: CPT: [id number] [place] [id number] EXAM: Pelvic ultrasound INDICATION: Right lower quadrant [...] CC: Lexi Cotter MD Technologist: Adelina Gutierrez Trnarb Date/Time: 04/18/2021 (1329) [email or web address] PAGE 1 Signed Report Name: EMY PORTER [facility] : 1955 Age/S: 65 / F [id number] [address] Unit #: [id number] Loc: [place] [address] Phys: Lexi Cotter MD Acct: [id number] Dis Date: Status: REG CLI PHONE #: [phone] Exam Date: 04/18/2021 1152 FAX #: Reason: RLQ PAIN EXAMS: CPT: [id number] [place] [address] (Continued) Orig Print D/T: S: 04/18/2021 (1332) Probe: [id number] PAGE 2 Signed Report - US PELVIC 2021-03-27 COMPLETE 4 13:29:00 [facility] : 1955 Sex: F Name: EMY PORTER [facility] : 1955 Age/S: 65 / F [address] [address] Unit #: [id number] Loc: [place] [address] Phys: Lexi Cotter MD Acct: [id number] Dis Date: Status: REG CLI PHONE #: [phone] Exam Date: 04/18/2021 1152 FAX #: Reason: RIGHT LOOWER QUADRANT PAIN EXAMS: CPT: [id number] US PELVIC COMPLETE 78593 EXAM: Pelvic ultrasound INDICATION: Right lower quadrant [...] M.D. CC: Lexi Cotter MD Technologist: Adelina Lugoscb Date/Time: 04/18/2021 (2981) [email or web address] PAGE 1 Signed Report Name: EMY PROTER : 1955 Age/S: 65 / F [id number] [address] Unit #: [id number] Loc: [place] [address] Phys: Lexi Cotter MD Acct: [id number] Dis Date: Status: REG CLI PHONE #: [phone] Exam Date: 04/18/2021 1152 FAX #: Reason: RIGHT LOOWER QUADRANT PAIN EXAMS: CPT: [id number] US PELVIC COMPLETE 87216 (Continued) Orig Print D/T: S: 04/18/2021 (2022) Probe: PAGE 2 Signed Report XR WRIST 3+ VW HISTORY: ORIF left Un iversity of LEFT 7 wrist. FINDINGS: [facility] 17:55:48 AP, lateral, Branch oblique views of [...] by [employer]. Please see additional comments above. [facility], Radiant Results Inft User - 10/30/2020 [...] additional comments above. XR CHEST 1 VW 2021-02-1 Findings and [facility] y of 9 Impression: ?Clear [facility] 18:13:34 lungs. No pleural Branch effusion or pneumothorax.Heart is normal. No acute osseous abnormality. Linear densities projectingover and inferior to the 11th ribs probably represent calcifications at theanterior costochondral junctions. PORTABLE CHEST RADIOGRAPH History: Surgery Comparison: None available TECHNIQUE: AP view of the chest. [facility], Radiant Results Inft User - 09/13/2020 12:14 PM CSTPORTABLE CHEST RADIOGRAPHHistory: Surgery Comparison: None availableTECHNIQUE: AP view of the chest.IMPRESSIONFin dings and Impression: Clear lungs. No pleural effusion or pneumothorax.Heart is normal. No acute osseous abnormality. Linear densities projectingover and inferior to the 11th ribs probably represent calcifications at theanterior costochondral junctions.
[2023-01-18 16:28] LABS: Absolute Lymphocytes (CBC) 1.3 K/uL (0.7-4.9); Hematocrit 36.3 % (36.0-45.0); Lymphocytes % 27.5 % (15.3-44.8); MPV 6.6 fL (7.6-11.3); RBC Red Blood Cell Count 4.17 M/uL (3.86-4.86)
[2023-01-18 16:51] LABS: Magnesium 2.4 mg/dL (1.6-2.4); Potassium 3.4 mEq/L (3.5-5.1); Troponin High Sensitivity 4.1 pg/mL (<58.9)
--- NOTE | 2023-01-18 17:36 | RAD REPORT ---
EXAM DESCRIPTION: [place] Single View01/18/2023 5:13 pm CLINICAL HISTORY: Chest pain COMPARISON: 2009 FINDINGS: The lungs appear clear of acute infiltrate. The heart is normal size IMPRESSION: No acute abnormalities displayed
--- NOTE | 2023-01-18 17:36 | RAD REPORT ---
EXAM DESCRIPTION: CT - Chest For Pe Angio - 01/18/2023 5:12 pm CLINICAL HISTORY: Chest pain COMPARISON: None. TECHNIQUE: Dynamically enhanced axial 3 mm thick images of the chest were obtained during administra tion of 66 mL Isovue 370 IV contrast. Coronal and oblique reconstruction images were generated and re viewed. Exam utilizes a protocol for optimal evaluation of pulmonary arterial tree. Maximum intensity projections 3D imaging was utilized All CT scans are performed using dose optimization technique as appropriate and may include automated exposure control or mA/KV adjustment according to patient size. FINDINGS: A pulmonary embolus is not seen. A thoracic aortic aneurysm is not noted. A pleural effusion is not seen. A pericardial effusion is not seen. A lung consolidation is not present. Small hiatal hernia IMPRESSION: Negative for a pulmonary embolism.
--- NOTE | 2023-01-18 18:00 | ER ---
Nurse's Notes [facility] Name: Gin Duenas Age: 67 yrs Sex: Female : 1955 Arrival Date: 01/18/2023 Time: 15:32 Bed 2 Private MD: Diagnosis: Chest pain, unspecified Presentation: 01/18 15:35 Chief complaint: Patient states: Chest pain, onset 15 min ago, started feeling a little nj1 nauseous before entering the hospital. Pt's state that she had a cardiac work up done about 2 months ago. Took her anxiety medicine right after pain started. 15:35 Method Of Arrival: Ambulatory [facility] 15:35 Coronavirus screen: Vaccine status: Patient reports receiving the 2nd dose of the covid nj1 vaccine. Ebola Screen: Patient denies travel to an Ebola-affected area in the 21 days before illness onset. Initial Sepsis Screen: Does the patient meet any 2 criteria? No. Patient's initial sepsis screen is negative. Does the patient have a suspected source of infection? No. Patient's initial sepsis screen is negative. Risk Assessment: Do you want to hurt yourself or someone else? Patient reports no desire to harm self or others. Onset of symptoms was January 18, 2023 at 15:20. 15:35 Acuity: RAGHAV 2 nj1 Historical: - Allergies: 16:08 Sept; jl7 - PMHx: 15:35 tremors; Anxiety; Alzheimer's disease; Mild; nj1 - Immunization history:: Client reports receiving the 2nd dose of the Covid vaccine. - Social history:: Smoking status: Patient denies any tobacco usage or history of. - Family history:: not pertinent. - Hospitalizations: : No recent hospitalization is reported. Screenin:45 [facility] ED Fall Risk Assessment (Adult) History of falling in the last 3 months, jl7 including since admission No falls in past 3 months (0 pts) Confusion or Disorientation No (0 pts) Intoxicated or Sedated No (0 pts) Impaired Gait No (0 pts) Mobility Assist Device Used No (0 pt) Altered Elimination No (0 pt) Score/Fall Risk Level 0 - 2 = Low Risk Oriented to surroundings, Maintained a safe environment. Abuse screen: Denies threats or abuse. Denies injuries from another. Nutritional screening: No deficits noted. Tuberculosis screening: No symptoms or risk factors identified. Assessment: 15:45 General: Appears in no apparent distress. uncomfortable, Behavior is cooperative, jl7 appropriate for age, anxious. Pain: Complains of pain in mid-sternal area Pain radiates to thoracic area Pain currently is 5 out of 10 on a pain scale. Quality of pain is described as pressure, sharp, Pain began 30 min ago. Is continuous. Neuro: Level of Consciousness is awake, alert, obeys commands, Oriented to person, place, time, situation. Cardiovascular: Heart tones present Patient's skin is warm and dry. Rhythm is regular. Respiratory: Airway is patent Respiratory effort is even, unlabored, Respiratory pattern is regular, symmetrical, Breath sounds are clear bilaterally. Derm: Skin is pink, warm \T\ dry. 16:41 Reassessment: Patient appears in no apparent distress at this time. Patient and/or jl7 family updated on plan of care and expected duration. Pain level reassessed. Patient is alert, oriented x 3, equal unlabored respirations, skin warm/dry/pink. Patient states symptoms have improved. 17:30 Reassessment: Patient appears in no apparent distress at this time. No changes from jl7 previously documented assessment. Patient and/or family updated on plan of care and expected duration. Pain level reassessed. Patient is alert, oriented x 3, equal unlabored respirations, skin warm/dry/pink. Vital Signs: 15:35 BP 187 / 95; Pulse 67; Resp 16; Temp 98.2(O); Pulse Ox 100% ; Weight 54.88 kg; Height 5 nj1 ft. 3 in. ; Pain 5/10; 16:22 BP 173 / 85; Pulse 71; Resp 15; Pulse Ox 100% ; jl7 16:40 BP 163 / 87; Pulse 71; Resp 15; Pulse Ox 100% ; jl7 17:29 BP 150 / 83; Pulse 73; Resp 15; Pulse Ox 99% ; jl7 18:15 BP 140 / 78; Pulse 71; Resp 15; Pulse Ox 99% ; Pain 0/10; jl7 15:35 Body Mass Index 21.43 (54.88 kg, 160.02 cm) nj1 15:35 Pain Scale: Adult nj1 18:15 Pain Scale: Adult jl7 ED Course: 15:32 Patient arrived in ED. mr 15:34 Josef Maldonado MD is Attending Physician. rn 15:35 Patient placed in an exam room. nj1 15:38 Edgardo Garrison, RN is Primary Nurse. jl7 15:39 EKG completed in triage. Results shown to MD. nj1 15:45 Patient has correct armband on for positive identification. Placed in gown. Bed in low jl7 position. Call light in reach. Side rails up X2. Client placed on continuous cardiac and pulse oximetry monitoring. NIBP monitoring applied. 15:58 Radiology exam delayed due to lab results not completed at this time. (BUN/Creatinine) jg10 IV insertion attempt and/or patient not having appropriate IV at this time. 16:04 Triage completed. nj1 16:05 Arm band placed on. nj1 16:26 Initial lab(s) drawn, by me, sent to lab. EKG done, by ED staff, reviewed by Josef Maldonado MD. Inserted saline lock: 20 gauge in left antecubital area, using aseptic technique. Blood collected. 16:26 Patient maintains SpO2 saturation greater than 95% on room air. jl7 17:14 CT Chest For PE Angio In Process Unspecified. EDMS 17:15 XRAY Chest (1 view) In Process Unspecified. EDMS 18:33 No provider procedures requiring assistance completed. IV discontinued, intact, jl7 bleeding controlled, No redness/swelling at site. Pressure dressing applied. Administered Medications: No medications were administered Medication: 15:45 VIS not applicable for this client. jl7 Outcome: 17:59 Discharge ordered by MD. rn 18:33 Discharged to home ambulatory. jl7 18:33 Condition: stable 18:33 Discharge instructions given to patient, significant other, Instructed on discharge instructions, follow up and referral plans. Demonstrated understanding of instructions, follow-up care. 18:34 Patient left the ED. jl7 Signatures: Dispatcher [employer] [facility] Gi Garcia Josef Maldonado MD MD rn Leal, Jahala, RN RN jl7 Griselda Moe jg10 Wilda Vega, MISTY RN nj1 Corrections: (The following items were deleted from the chart) 17:29 16:40 BP 136 / 87; Pulse 71bpm; Resp 15bpm; Pulse Ox 100%; jl7 jl7
--- NOTE | 2023-01-18 18:00 | EDPHYS ---
Physician Documentation [facility] Name: Gin Duenas Age: 67 yrs Sex: Female : 1955 Arrival Date: 01/18/2023 Time: 15:32 Bed 2 Private MD: ED Physician Josef Maldonado HPI: 01/18 16:12 This 67 yrs old Female presents to ER via Ambulatory with complaints of Chest Tightness.rn 16:12 The patient or guardian reports chest pain that is located primarily in the substernal rn area. Onset: this morning. The pain does not radiate. Associated signs and symptoms: Pertinent positives: dizziness, lightheadedness, palpitations, shortness of breath, Pertinent negatives: abdominal pain, cough, syncope, vomiting. The chest pain is described as aching, causing indigestion. Duration: The patient or guardian reports multiple episodes, that are intermittent. Modifying factors: The symptoms are alleviated by nothing. the symptoms are aggravated by nothing. Severity of pain: At its worst the pain was moderate in the emergency department the pain has improved. The patient has experienced similar episodes in the past. Patient and family member report "episodes" that happen almost daily, has had a recent cardiac evaluation including neg ECHO and stress test with Dr. Reyes. Has anxiety and takes anxiety medication. No fever. No cough. No hx of dvt/PE. Took her anxiety medication prior to coming in and already feeling better. Family member reports believes is her anxiety again "but wanted to be sure". Pt reports "feels like indigestion". . Historical: - Allergies: 16:08 Septra; jl7 - PMHx: 15:35 tremors; Anxiety; Alzheimer's disease; Mild; nj1 - Immunization history:: Client reports receiving the 2nd dose of the Covid vaccine. - Social history:: Smoking status: Patient denies any tobacco usage or history of. - Family history:: not pertinent. - Hospitalizations: : No recent hospitalization is reported. ROS: 16:12 Constitutional: Negative for fever, chills, and weight loss, Neck: Negative for injury, rn pain, and swelling, Cardiovascular: Negative for edema Respiratory: Negative for shortness of breath, cough, wheezing, and pleuritic chest pain, Abdomen/GI: Negative for abdominal pain, nausea, vomiting, diarrhea, and constipation, Back: Negative for injury and pain, MS/Extremity: Negative for injury and deformity, Skin: Negative for injury, rash, and discoloration, Neuro: Negative for headache, weakness, numbness, tingling, and seizure. Exam: 16:12 Constitutional: This is a well developed, well nourished patient who is awake, alert, rn and in no acute distress. Head/Face: Normocephalic, atraumatic. Cardiovascular: Regular rate and rhythm. No pulse deficits. Respiratory: No increased work of breathing, no retractions or nasal flaring. Abdomen/GI: Soft, non-tender Skin: Warm, dry with normal turgor. Normal color with no rashes, no lesions, and no evidence of cellulitis. MS/ Extremity: Pulses equal, no cyanosis. Neurovascular intact. Full, normal range of motion. Equal circumference. Neuro: Awake and alert, GCS 15 16:12 ECG was reviewed by the Attending Physician. Vital Signs: 15:35 BP 187 / 95; Pulse 67; Resp 16; Temp 98.2(O); Pulse Ox 100% ; Weight 54.88 kg; Height 5 nj1 ft. 3 in. ; Pain 5/10; 16:22 BP 173 / 85; Pulse 71; Resp 15; Pulse Ox 100% ; jl7 16:40 BP 163 / 87; Pulse 71; Resp 15; Pulse Ox 100% ; jl7 17:29 BP 150 / 83; Pulse 73; Resp 15; Pulse Ox 99% ; jl7 18:15 BP 140 / 78; Pulse 71; Resp 15; Pulse Ox 99% ; Pain 0/10; jl7 15:35 Body Mass Index 21.43 (54.88 kg, 160.02 cm) nj1 15:35 Pain Scale: Adult nj1 18:15 Pain Scale: Adult jl7 MDM: 15:34 Patient medically screened. rn 17:55 Differential diagnosis: acute myocardial infarction, acute pericarditis, anxiety, rn coronary artery disease chest wall pain, costochondritis, esophagitis, gastritis, pleurisy, pneumonia, pneumothorax, pulmonary embolus, stable angina. Data reviewed: vital signs, nurses notes, lab test result(s), EKG, radiologic studies, CT scan, plain films, and as a result, I will discharge patient. Counseling: I had a detailed discussion with the patient and/or guardian regarding: the historical points, exam findings, and any diagnostic results supporting the discharge/admit diagnosis, lab results, radiology results, the need for outpatient follow up, to return to the emergency department if symptoms worsen or persist or if there are any questions or concerns that arise at home. Response to treatment: the patient's symptoms have markedly improved after treatment, and as a result, I will discharge patient. Special discussion: Based on the patient's history, exam, and Dx evaluation, there is no indication for emergent intervention or inpatient Tx. It is understood by the patient/guardian that if the Sx's persist or worsen they need to return immediately for re-evaluation. I discussed with the patient/guardian in detail that at this point there is no indication for admission to the hospital. It is understood, however, that if the symptoms persist or worsen the patient needs to return immediately for re-evaluation. ED course: CT PE neg, trop neg, normal ECG, recent neg echo and stress test, improved with her anxiety medication. Will dc home with return precautions, recommend antacids, and continuation of her anxiety mediation. If symptoms worsen or change will need to return.. 01/18 15:56 Order name: Basic Metabolic Panel; Complete Time: 16:01/18 15:56 Order name: CBC with Diff; Complete Time: 16:01/18 15:56 Order name: Magnesium; Complete Time: 16:01/18 15:56 Order name: NT PRO-BNP; Complete Time: 16:01/18 15:56 Order name: Troponin HS; Complete Time: 16:01/18 15:56 Order name: XRAY Chest (1 view); Complete Time: 17:01/18 15:56 Order name: CT Chest For PE Angio; Complete Time: 17:01/18 15:56 Order name: EKG; Complete Time: 15:01/18 15:56 Order name: Cardiac monitoring; Complete Time: 15:01/18 15:56 Order name: EKG - Nurse/Tech; Complete Time: 15:01/18 15:56 Order name: IV Saline Lock; Complete Time: 16:01/18 15:56 Order name: Labs collected and sent; Complete Time: 16:01/18 15:56 Order name: O2 Per Protocol; Complete Time: 15:57 rn 01/18 15:56 Order name: O2 Sat Monitoring; Complete Time: 15:57 rn EC:12 Rate is 78 beats/min. Rhythm is regular. QRS [place] is Normal. [place] interval is normal. QRS rn interval is normal. QT interval is normal. No Q waves. T waves are Normal. No ST changes noted. Clinical impression: Normal ECG. Interpreted by me. Reviewed by me. Administered Medications: No medications were administered Disposition Summary: 01/18/23 17:59 Discharge Ordered Location: Home rn Problem: new rn Symptoms: have improved rn Condition: Stable rn Diagnosis - Chest pain, unspecified rn Followup: rn - With: Private Physician - When: As needed - Reason: Recheck today's complaints, Re-evaluation by your physician Discharge Instructions: - Discharge Summary Sheet rn - Nonspecific Chest Pain, Adult rn Forms: - Medication Reconciliation Form rn - Thank You Letter rn - Antibiotic furniture maker - Prescription Opioid Use rn - [email or web address] rn Signatures: Dispatcher [employer] EDJosef Kumar MD MD rn Leal, Jahala, RN RN jl7 Wilda Vega, RN RN nj1
[2023-01-18 18:39] VITALS: TEMP 98.2
[2023-01-18 18:44] VITALS: O2SAT 99
[2023-01-18 18:46] VITALS: BP 140/78
--- NOTE | 2023-01-19 20:39 | EKG ---
Test Date: 2023-01-18 Test Time: 15:39:11 Inspector Chief: JENN MEASUREMENT RESULTS: Intervals: Rate: 78 TX: 154 QRSD: 80 QT: 406 QTc: 462 [place]: P: 74 TX: 154 QRS: 60 T: 63 INTERPRETIVE STATEMENTS: Normal sinus rhythm Normal ECG Compared to ECG 05/11/2022 10:38:43 No significant changes Electronically Signed On 01-19-23 20:33:11 CDT by Farhan Reyes
== END 2023-01-18 18:34 | disposition home or self-care (01) ==
LOC: ER 15:32
DX: R07.89 Other chest pain (principal); F41.9 Anxiety disorder, unspecified; G30.9 Alzheimer's disease, unspecified; F02.80 Dementia in other diseases classified elsewhere, unspecified severity, without behavioral disturbance, psychotic disturbance, mood disturbance, and anxiety; Z88.8 Allergy status to other drugs, medicaments and biological substances
CPT/HCPCS: 85025; 80048; 36415; 83735; 84484; 83880; 71275; 71045; Q9967; 93005